=== PATIENT | male | born 1940 | race Caucasian/White ===

== ENCOUNTER 2017-11-19 17:29 | Inpatient (IN) | payer MEDICARE, MEDICAID ==
[~2017-11-19] VITALS: Ht 177.8 cm; Wt 99.3 kg
[2017-11-19 17:39] VITALS: BP 168/61
[2017-11-19] MEDS ORDERED: Albuterol/Ipratropium 3ml neb HHN ONE (18:00)
[2017-11-19 18:43] LABS: BASOPHILS % (AUTO) 1.1 % (0.0-2.0); EOSINOPHILS % (AUTO) 2.1 % (0.0-3.0); HEMATOCRIT 31.2 % (42.0-52.0); HEMOGLOBIN 9.9 G/DL (14.2-18.0); LYMPHOCYTES % (AUTO) 16.3 % (20.0-45.0); MEAN CORPUSCULAR VOLUME 90 FL (80-99); MONOCYTES % (AUTO) 8.5 % (1.0-10.0); NEUTROPHILS % (AUTO) 72.1 % (45.0-75.0); PLATELET COUNT 280 K/UL (150-450); RED BLOOD COUNT 3.46 M/UL (4.70-6.10); RED CELL DISTRIBUTION WIDTH 13.4 % (11.6-14.8); WHITE BLOOD COUNT 8.3 K/UL (4.8-10.8)
[2017-11-19 18:58] LABS: ANION GAP 7 mmol/L (5-15); BLOOD UREA NITROGEN 21 mg/dL (7-18); CALCIUM 8.8 MG/DL (8.5-10.1); CARBON DIOXIDE 28 MMOL/L (21-32); CHLORIDE 106 MMOL/L (98-107); CREATININE 1.3 MG/DL (0.55-1.30); POTASSIUM 4.3 MMOL/L (3.5-5.1); SODIUM 141 MMOL/L (136-145)
[2017-11-19 19:11] LABS: ALANINE AMINOTRANSFERASE 20 U/L (12-78); ALBUMIN/GLOBULIN RATIO 0.7 (1.0-2.7); ALKALINE PHOSPHATASE 105 U/L (46-116); ASPARTATE AMINO TRANSFERASE 21 U/L (15-37); BILIRUBIN,TOTAL 0.3 MG/DL (0.2-1.0); CKMB 3.4 NG/ML (0.0-3.6); CREATINE KINASE 131 U/L (26-308)
[2017-11-19 21:30] VITALS: BP 189/64
[2017-11-19] MEDS ORDERED: Albuterol/Ipratropium 3ml neb HHN PRN (21:30)
[2017-11-19] MEDS ORDERED: Miralax 17gm pkt ORAL PRN (21:30)
[2017-11-19] MEDS ORDERED: UNOBMED (21:32)
[2017-11-19 22:30] VITALS: BP 152/85
--- NOTE | 2017-11-19 22:37 | Emergency Room Report ---
History of Present Illness General Chief Complaint: General Complaint Source: EMS Present Illness HPI Patient is 77-year-old male brought in by EMS after increased difficulty breathing. The patient was noted to have gradually worsening difficulty breathing. Patient had prior history of bypass surgery. He was noted to have some swelling to his lower extremities as well as increased cough.The difficulty breathing is worse with supine position. Allergies: Coded Allergies: No Known Allergies (Unverified , 11/19/17) Patient History Past Medical History: see triage record Reviewed Nursing Documentation: PMH: Agreed; PSxH: Agreed Nursing Documentation-PMH Past Medical History: No History, Except For Hx Cardiac Problems: Yes Hx Cancer: Yes Review of Systems All Other Systems: limited - by poor historian Physical Exam Vital Signs Date Time Temp Pulse Resp B/P (MAP) Pulse Ox O2 Delivery O2 Flow Rate FiO2 11/19/17 17:29 98.3 70 22 187/74 94 Room Air 98.2 11/19/17 19:57 93 General Appearance: alert, moderate distress, Chronically Ill Respiratory: rales, wheezing, expiration Cardiovascular #1: edema - 3+ Gastrointestinal: normal inspection, non tender, no mass Neurologic: normal inspection, alert Medical Decision Making Diagnostic Impression: Primary Impression: Acute exacerbation of CHF (congestive heart failure) Additional Impression: CAD (coronary artery disease) ER Course Patient presented for shortness of breath. Differential included but was not limited to anemia, pneumonia, pneumothorax, myocardial infarction, pericardial effusion, congestive heart failure, acidosis. Because of complexity of patient' s case laboratory testing and imaging studies were ordered. Laboratory testing was notable for elevated BNP. Dr. Price was contacted for inpatient management due to complexity of medical condition. Patient given IV Lasix as well as breathing treatment. Labs Test 11/19/17 18:15 White Blood Count 8.3 K/UL (4.8-10.8) Red Blood Count 3.46 M/UL (4.70-6.10) Hemoglobin 9.9 G/DL (14.2-18.0) Hematocrit 31.2 % (42.0-52.0) Mean Corpuscular Volume 90 FL (80-99) Mean Corpuscular Hemoglobin 28.6 PG (27.0-31.0) Mean Corpuscular Hemoglobin Concent 31.7 G/DL (32.0-36.0) Red Cell Distribution Width 13.4 % (11.6-14.8) Platelet Count 280 K/UL (150-450) Mean Platelet Volume 7.0 FL (6.5-10.1) Neutrophils (%) (Auto) 72.1 % (45.0-75.0) Lymphocytes (%) (Auto) 16.3 % (20.0-45.0) Monocytes (%) (Auto) 8.5 % (1.0-10.0) Eosinophils (%) (Auto) 2.1 % (0.0-3.0) Basophils (%) (Auto) 1.1 % (0.0-2.0) Sodium Level 141 MMOL/L (136-145) Potassium Level 4.3 MMOL/L (3.5-5.1) Chloride Level 106 MMOL/L (98-107) Carbon Dioxide Level 28 MMOL/L (21-32) Anion Gap 7 mmol/L (5-15) Blood Urea Nitrogen 21 mg/dL (7-18) Creatinine 1.3 MG/DL (0.55-1.30) Estimat Glomerular Filtration Rate mL/min (>60) Glucose Level 120 MG/DL (74-106) Lactic Acid Level 0.70 mmol/L (0.66-2.22) Calcium Level 8.8 MG/DL (8.5-10.1) Total Bilirubin 0.3 MG/DL (0.2-1.0) Aspartate Amino Transf (AST/SGOT) 21 U/L (15-37) Alanine Aminotransferase (ALT/SGPT) 20 U/L (12-78) Alkaline Phosphatase 105 U/L (46-116) Total Creatine Kinase 131 U/L (26-308) Creatine Kinase MB 3.4 NG/ML (0.0-3.6) Creatine Kinase MB Relative Index 2.5 Troponin I 0.005 ng/mL (0.000-0.056) Pro-B-Type Natriuretic Peptide 5179 pg/mL (0-125) Total Protein 7.3 G/DL (6.4-8.2) Albumin 3.0 G/DL (3.4-5.0) Globulin 4.3 g/dL Albumin/Globulin Ratio 0.7 (1.0-2.7) EKG Diagnostic Results Rate: normal Rhythm: NSR, other - left bundle branch block ST Segments: no acute changes Rhythm Strip Diag. Results EP Interpretation: yes Rhythm: NSR, other - pvcs Last Vital Signs Date Time Temp Pulse Resp B/P (MAP) Pulse Ox O2 Delivery O2 Flow Rate FiO2 11/19/17 21:30 98.4 75 20 189/64 95 Room Air 98.4 11/19/17 20:07 21 Status: unchanged Disposition: ADMITTED INPATIENT Condition: Serious Referrals: NOT CHOSEN IPA/,REFERRING (PCP) Nhan Walker Nov 19, 2017 22:37
--- NOTE | 2017-11-19 22:52 | History and Physical ---
History of Present Illness General Date patient seen: Nov 19, 2017 Reason for Hospitalization: General Complaint Present Illness HPI 77-year-old with male with hx of COPD, Cardiac disease, Bypass-surgery male brought in by EMS with CC of difficulty breathing witch was gradually worsening. He was noted to have some swelling to his lower extremities as well as increased cough.The difficulty breathing is worse with supine position. He was diagnosed to have acute exacerbation of his underlying CHF and admitted to telemetry. Allergies: Coded Allergies: No Known Allergies (Unverified , 11/19/17) Medication History Miscellaneous Medications Carvedilol* (Carvedilol*), 25 MG ORAL, (Reported) Carvedilol* (Carvedilol*), 12.5 MG ORAL, (Reported) Clonazepam (Clonazepam), 0.5 MG PO, (Reported) Clopidogrel* (Clopidogrel*), 75 MG ORAL, (Reported) Esomeprazole Magnesium (Esomeprazole Magnesium), 40 MG ORAL, (Reported) Furosemide* (Lasix*), 40 MG ORAL, (Reported) Meclizine Hcl (Travel Sickness), 25 MG PO, (Reported) Memantine HCl/Donepezil HCl (Namzaric 28 mg-10 mg Capsule), 10-28 MG ORAL, ( Reported) Nitroglycerin (Nitroglycerin), 0.4 MG PO, (Reported) Ondansetron Hcl (Ondansetron Hcl), 4 MG ORAL, (Reported) Potassium Chloride (Potassium Chloride), 8 MEQ PO, (Reported) Rosuvastatin Calcium (Rosuvastatin Calcium), 40 MG ORAL, (Reported) Tamsulosin Hcl (Tamsulosin Hcl*), 0.4 MG ORAL, (Reported) Topiramate* (Topamax*), 25 MG ORAL, (Reported) Unable to Obtain Medications (Unable To Obtain Meds), (Reported) Valsartan (Diovan), 160 MG ORAL, (Reported) Valsartan (Diovan), 160 MG ORAL, (Reported) Valsartan/Hydrochlorothiazide 160-25MG (Valsartan-Hctz 160-25 Mg Tab), Unknown Dose ORAL, (Reported) Vilazodone Hydrochloride (Viibryd), 20 MG ORAL, (Reported) Patient History Healthcare decision maker Resuscitation status Advanced Directive on File Past Medical/Surgical History Past Medical/Surgical History: (1) Hx of CABG (2) Hypertension (3) CAD (coronary artery disease) Review of Systems Respiratory: Reports: orthopnea, wheezing Gastrointestinal: Reports: abdominal pain, nausea, vomiting Physical Exam General Appearance: WD/WN Lines, tubes and drains: peripheral HEENT: normocephalic, atraumatic Neck: non-tender, normal alignment Respiratory/Chest: chest wall non-tender, lungs clear Cardiovascular/Chest: normal peripheral pulses, normal rate Abdomen: normal bowel sounds Genitourinary/Rectal: normal genital exam, normal rectal exam Extremities: normal range of motion Skin Exam: normal pigmentation Last 24 Hour Vital Signs Date Time Temp Pulse Resp B/P (MAP) Pulse Ox O2 Delivery O2 Flow Rate FiO2 11/19/17 21:30 98.4 75 20 189/64 95 Room Air 98.4 11/19/17 20:07 82 15 100 Room Air 21 11/19/17 19:57 74 17 93 Room Air 21 11/19/17 19:57 36 11/19/17 19:57 78 17 Room Air 93 11/19/17 17:39 99.0 72 20 168/61 96 Room Air 99.0 11/19/17 17:29 98.3 70 22 187/74 94 Room Air 98.2 Laboratory Tests Test 11/19/17 18:15 White Blood Count 8.3 K/UL (4.8-10.8) Red Blood Count 3.46 M/UL (4.70-6.10) L Hemoglobin 9.9 G/DL (14.2-18.0) L Hematocrit 31.2 % (42.0-52.0) L Mean Corpuscular Volume 90 FL (80-99) Mean Corpuscular Hemoglobin 28.6 PG (27.0-31.0) Mean Corpuscular Hemoglobin Concent 31.7 G/DL (32.0-36.0) L Red Cell Distribution Width 13.4 % (11.6-14.8) Platelet Count 280 K/UL (150-450) Mean Platelet Volume 7.0 FL (6.5-10.1) Neutrophils (%) (Auto) 72.1 % (45.0-75.0) Lymphocytes (%) (Auto) 16.3 % (20.0-45.0) L Monocytes (%) (Auto) 8.5 % (1.0-10.0) Eosinophils (%) (Auto) 2.1 % (0.0-3.0) Basophils (%) (Auto) 1.1 % (0.0-2.0) Sodium Level 141 MMOL/L (136-145) Potassium Level 4.3 MMOL/L (3.5-5.1) Chloride Level 106 MMOL/L (98-107) Carbon Dioxide Level 28 MMOL/L (21-32) Anion Gap 7 mmol/L (5-15) Blood Urea Nitrogen 21 mg/dL (7-18) H Creatinine 1.3 MG/DL (0.55-1.30) Estimat Glomerular Filtration Rate mL/min (>60) Glucose Level 120 MG/DL (74-106) H Lactic Acid Level 0.70 mmol/L (0.66-2.22) Calcium Level 8.8 MG/DL (8.5-10.1) Total Bilirubin 0.3 MG/DL (0.2-1.0) Aspartate Amino Transf (AST/SGOT) 21 U/L (15-37) Alanine Aminotransferase (ALT/SGPT) 20 U/L (12-78) Alkaline Phosphatase 105 U/L (46-116) Total Creatine Kinase 131 U/L (26-308) Creatine Kinase MB 3.4 NG/ML (0.0-3.6) Creatine Kinase MB Relative Index 2.5 Troponin I 0.005 ng/mL (0.000-0.056) Pro-B-Type Natriuretic Peptide 5179 pg/mL (0-125) H Total Protein 7.3 G/DL (6.4-8.2) Albumin 3.0 G/DL (3.4-5.0) L Globulin 4.3 g/dL Albumin/Globulin Ratio 0.7 (1.0-2.7) L Microbiology Date/Time Source Procedure Growth Status 11/19/17 18:00 Nasal Nares Influenza Types A,B Antigen (HOLLY) - Final Complete Height (Feet): 5 Height (Inches): 10.00 Weight (Pounds): 180 Medications Current Medications Medications (Trade) Dose Ordered Sig/Gini Route PRN Reason Start Time Stop Time Status Last Admin Dose Admin Acetaminophen (Tylenol) 650 mg Q4H PRN ORAL Fever 11/19/17 21:30 12/19/17 21:29 Albuterol/ Ipratropium (Albuterol/ Ipratropium) 3 ml EVERY 4 HOURS PRN HHN Shortness of Breath 11/19/17 21:30 11/24/17 21:29 Dextrose (Dextrose 50%) STAT PRN IV Hypoglycemia 11/19/17 21:30 12/19/17 21:29 Furosemide (Lasix) 40 mg EVERY 8 HOURS IV 11/19/17 22:00 12/19/17 21:59 Heparin Sodium (Porcine) (Heparin 5000 units/ml) 5,000 units EVERY 12 HOURS SUBQ 11/20/17 09:00 12/20/17 08:59 Ondansetron HCl (Zofran) 4 mg Q6H PRN IVP Nausea & Vomiting 11/19/17 21:30 12/19/17 21:29 Polyethylene Glycol (Miralax) 17 gm DAILYPRN PRN ORAL Constipation 11/19/17 21:30 12/19/17 21:29 Temazepam (Restoril) 15 mg HSPRN PRN ORAL Insomnia 11/19/17 21:30 11/26/17 21:29 Assessment/Plan Problem List: (1) Acute exacerbation of CHF (congestive heart failure) ICD Codes: I50.9 - Heart failure, unspecified SNOMED: 99807346 (2) Intractable nausea and vomiting ICD Codes: R11.2 - Nausea with vomiting, unspecified SNOMED: 838898440 (3) Pulmonary edema ICD Codes: J81.1 - Chronic pulmonary edema SNOMED: 63024595 (4) CAD (coronary artery disease) ICD Codes: I25.10 - Atherosclerotic heart disease of [place] coronary artery without angina pectoris SNOMED: 37116338 (5) Hypertension ICD Codes: I10 - Essential (primary) hypertension SNOMED: 19046707 (6) Hx of CABG ICD Codes: Z95.1 - Presence of aortocoronary bypass graft SNOMED: 032705665, 787459145 Assessment/Plan serial ekg, troponin, echo cardio to see monitor BP Sukhwinder Thomason IV, MD Nov 19, 2017 22:52
[2017-11-20] VITALS: BP 144/64
[2017-11-20 04:00] VITALS: BP 121/76
[2017-11-20 08:00] VITALS: BP 145/72
--- NOTE | 2017-11-20 08:38 | Diagnostic Imaging Report ---
Indication: Shortness of breath Technique: One view of the chest Comparison: 11/05/2009 Findings: The heart is enlarged. There is evidence of prior CABG. The left lateral hemidiaphragm is obscured, may indicate a small amount of pleural fluid. There is some atelectasis of the right lateral lung base. Impression: Possible small left pleural effusion Right basilar atelectasis Cardiomegaly
[2017-11-20 08:58] LABS: BASOPHILS % (AUTO) 0.8 % (0.0-2.0); EOSINOPHILS % (AUTO) 1.9 % (0.0-3.0); HEMATOCRIT 33.4 % (42.0-52.0); HEMOGLOBIN 10.8 G/DL (14.2-18.0); LYMPHOCYTES % (AUTO) 16.1 % (20.0-45.0); MEAN CORPUSCULAR VOLUME 89 FL (80-99); MONOCYTES % (AUTO) 8.5 % (1.0-10.0); NEUTROPHILS % (AUTO) 72.7 % (45.0-75.0); PLATELET COUNT 302 K/UL (150-450); RED BLOOD COUNT 3.73 M/UL (4.70-6.10); RED CELL DISTRIBUTION WIDTH 13.6 % (11.6-14.8); WHITE BLOOD COUNT 9.2 K/UL (4.8-10.8)
[2017-11-20] MEDS: Heparin 5000 units/ml inj SUBQ SCH ×2 (09:00→22:13)
[2017-11-20 09:25] LABS: ALBUMIN 3.3 G/DL (3.4-5.0); ANION GAP 10 mmol/L (5-15); BLOOD UREA NITROGEN 18 mg/dL (7-18); CALCIUM 8.9 MG/DL (8.5-10.1); CARBON DIOXIDE 32 MMOL/L (21-32); CHLORIDE 101 MMOL/L (98-107); CREATININE 1.4 MG/DL (0.55-1.30); PHOSPHORUS 3.7 MG/DL (2.5-4.9); POTASSIUM 3.3 MMOL/L (3.5-5.1); SODIUM 143 MMOL/L (136-145)
--- NOTE | 2017-11-20 10:17 | Diagnostic Imaging Report ---
Indication: Shortness of breath Technique: One view of the chest Comparison: 11/19/2017 Findings: The heart is enlarged. There is less optimal inspiration with crowding of vascular markings. Interstitial markings appear slightly more prominent, but this made in part be artifact of poor inspiration. The heart is enlarged. The left costophrenic angle is now more clear than on the prior exam Impression: Cardiomegaly Equivocal mild interstitial congestion; if real, may be slightly worse than on the prior study Previously is a question left pleural effusion no longer evident, may have resolved or have been artifactual
[2017-11-20 12:00] VITALS: BP 146/58
[2017-11-20] MEDS ORDERED: FUROSEMIDE40 MG ORAL (12:24)
[2017-11-20] MEDS ORDERED: TAMSULOSIN HCL0.4 MG ORAL (12:24)
[2017-11-20] MEDS ORDERED: NITROGLYCERIN0.4 MG PO (12:24)
[2017-11-20] MEDS ORDERED: TRAVEL SICKNESS25 MG PO (12:24)
[2017-11-20] MEDS ORDERED: CLOPIDOGREL75 MG ORAL (12:24)
[2017-11-20] MEDS ORDERED: TOPIRAMATE25 MG ORAL (12:24)
[2017-11-20] MEDS ORDERED: POTASSIUM CHLOR8 ME3 PO (12:24)
[2017-11-20] MEDS ORDERED: CARVEDILOL25 MG ORAL (12:24)
[2017-11-20] MEDS ORDERED: ROSUVASTATIN CA40 MG ORAL (12:24)
[2017-11-20] MEDS ORDERED: CARVEDILOL12.5 MG ORAL (12:24)
[2017-11-20] MEDS ORDERED: NAMZARIC 28 MG1 EACH ORAL (12:24)
[2017-11-20] MEDS ORDERED: VALSARTAN-HCTZ1 EAC2 ORAL (12:24)
[2017-11-20] MEDS ORDERED: VIIBRYD20 MG ORAL (12:24)
[2017-11-20] MEDS ORDERED: CLONAZEPAM0.5 MG PO (12:24)
[2017-11-20] MEDS ORDERED: DIOVAN160 MG ORAL (12:24)
[2017-11-20] MEDS ORDERED: ONDANSETRON HCL4 M1 ORAL (12:24)
[2017-11-20] MEDS ORDERED: ESOMEPRAZOLE MA40 MG ORAL (12:24)
--- NOTE | 2017-11-20 12:44 | Cardiology Progress Note ---
Assessment/Plan Assessment/Plan dyspnea recurrent nausea adn vomittign recent syncoep htn dm prostate czncer s/p xrt aortic stenosiis moderate [id number] Objective Last 24 Hour Vital Signs Date Time Temp Pulse Resp B/P (MAP) Pulse Ox O2 Delivery O2 Flow Rate FiO2 11/20/17 08:00 97.2 69 20 145/72 91 97.2 11/20/17 08:00 74 11/20/17 04:00 98.4 76 20 121/76 96 Room Air 98.4 11/20/17 04:00 77 11/20/17 00:00 97.5 76 20 144/64 95 Room Air 97.5 11/20/17 00:00 79 11/19/17 22:30 97.0 80 20 152/85 95 Room Air 97.0 11/19/17 22:05 98.4 75 20 189/64 95 Room Air 21 98.4 11/19/17 21:30 98.4 75 20 189/64 95 Room Air 98.4 11/19/17 20:07 82 15 100 Room Air 21 11/19/17 19:57 74 17 93 Room Air 21 11/19/17 19:57 36 11/19/17 19:57 78 17 Room Air 93 11/19/17 17:39 99.0 72 20 168/61 96 Room Air 99.0 11/19/17 17:29 98.3 70 22 187/74 94 Room Air 98.2 Intake and Output 11/19/17 11/20/17 19:00 07:00 Intake Total 0 ml Balance 0 ml Intake Oral 0 ml # Voids 6 Laboratory Tests Test 11/19/17 18:15 11/20/17 08:10 White Blood Count 8.3 K/UL (4.8-10.8) 9.2 K/UL (4.8-10.8) Red Blood Count 3.46 M/UL (4.70-6.10) L 3.73 M/UL (4.70-6.10) L Hemoglobin 9.9 G/DL (14.2-18.0) L 10.8 G/DL (14.2-18.0) L Hematocrit 31.2 % (42.0-52.0) L 33.4 % (42.0-52.0) L Mean Corpuscular Volume 90 FL (80-99) 89 FL (80-99) Mean Corpuscular Hemoglobin 28.6 PG (27.0-31.0) 28.8 PG (27.0-31.0) Mean Corpuscular Hemoglobin Concent 31.7 G/DL (32.0-36.0) L 32.2 G/DL (32.0-36.0) Red Cell Distribution Width 13.4 % (11.6-14.8) 13.6 % (11.6-14.8) Platelet Count 280 K/UL (150-450) 302 K/UL (150-450) Mean Platelet Volume 7.0 FL (6.5-10.1) 6.9 FL (6.5-10.1) Neutrophils (%) (Auto) 72.1 % (45.0-75.0) 72.7 % (45.0-75.0) Lymphocytes (%) (Auto) 16.3 % (20.0-45.0) L 16.1 % (20.0-45.0) L Monocytes (%) (Auto) 8.5 % (1.0-10.0) 8.5 % (1.0-10.0) Eosinophils (%) (Auto) 2.1 % (0.0-3.0) 1.9 % (0.0-3.0) Basophils (%) (Auto) 1.1 % (0.0-2.0) 0.8 % (0.0-2.0) Sodium Level 141 MMOL/L (136-145) 143 MMOL/L (136-145) Potassium Level 4.3 MMOL/L (3.5-5.1) 3.3 MMOL/L (3.5-5.1) L Chloride Level 106 MMOL/L (98-107) 101 MMOL/L (98-107) Carbon Dioxide Level 28 MMOL/L (21-32) 32 MMOL/L (21-32) Anion Gap 7 mmol/L (5-15) 10 mmol/L (5-15) Blood Urea Nitrogen 21 mg/dL (7-18) H 18 mg/dL (7-18) Creatinine 1.3 MG/DL (0.55-1.30) 1.4 MG/DL (0.55-1.30) H Estimat Glomerular Filtration Rate mL/min (>60) mL/min (>60) Glucose Level 120 MG/DL (74-106) H 122 MG/DL (74-106) H Lactic Acid Level 0.70 mmol/L (0.66-2.22) Calcium Level 8.8 MG/DL (8.5-10.1) 8.9 MG/DL (8.5-10.1) Total Bilirubin 0.3 MG/DL (0.2-1.0) Aspartate Amino Transf (AST/SGOT) 21 U/L (15-37) Alanine Aminotransferase (ALT/SGPT) 20 U/L (12-78) Alkaline Phosphatase 105 U/L (46-116) Total Creatine Kinase 131 U/L (26-308) Creatine Kinase MB 3.4 NG/ML (0.0-3.6) Creatine Kinase MB Relative Index 2.5 Troponin I 0.005 ng/mL (0.000-0.056) 0.098 ng/mL (0.000-0.056) Pro-B-Type Natriuretic Peptide 5179 pg/mL (0-125) H Total Protein 7.3 G/DL (6.4-8.2) Albumin 3.0 G/DL (3.4-5.0) L 3.3 G/DL (3.4-5.0) L Globulin 4.3 g/dL Albumin/Globulin Ratio 0.7 (1.0-2.7) L Phosphorus Level 3.7 MG/DL (2.5-4.9) Microbiology Date/Time Source Procedure Growth Status 11/19/17 18:00 Nasal Nares Influenza Types A,B Antigen (HOLLY) - Final Complete JOAQUÍN ROY Nov 20, 2017 12:44
--- NOTE | 2017-11-20 13:34 | Pulmonology Progress Note ---
Assessment/Plan Problems: (1) Acute exacerbation of CHF (congestive heart failure) (2) Intractable nausea and vomiting (3) Pulmonary edema (4) CAD (coronary artery disease) (5) Hypertension (6) Hx of CABG Assessment/Plan dc lasix add phenergen iv for nausea npo GI to see symptomatic treatment check electrolytes check echo dvt prophylaxis Subjective ROS Limited/Unobtainable: No Interval Events: still vomiting, less SOB Constitutional: Reports: no symptoms HEENT: Repors: no symptoms Allergies: Coded Allergies: No Known Allergies (Unverified , 11/19/17) Objective Last 24 Hour Vital Signs Date Time Temp Pulse Resp B/P (MAP) Pulse Ox O2 Delivery O2 Flow Rate FiO2 11/20/17 12:00 97.5 74 20 146/58 98 97.5 11/20/17 08:00 97.2 69 20 145/72 91 97.2 11/20/17 08:00 74 11/20/17 04:00 98.4 76 20 121/76 96 Room Air 98.4 11/20/17 04:00 77 11/20/17 00:00 97.5 76 20 144/64 95 Room Air 97.5 11/20/17 00:00 79 11/19/17 22:30 97.0 80 20 152/85 95 Room Air 97.0 11/19/17 22:05 98.4 75 20 189/64 95 Room Air 21 98.4 11/19/17 21:30 98.4 75 20 189/64 95 Room Air 98.4 11/19/17 20:07 82 15 100 Room Air 21 11/19/17 19:57 74 17 93 Room Air 21 11/19/17 19:57 36 11/19/17 19:57 78 17 Room Air 93 11/19/17 17:39 99.0 72 20 168/61 96 Room Air 99.0 11/19/17 17:29 98.3 70 22 187/74 94 Room Air 98.2 Intake and Output 11/19/17 11/20/17 19:00 07:00 Intake Total 0 ml Balance 0 ml Intake Oral 0 ml # Voids 6 Objective General Appearance: WD/WN Lines, tubes and drains: peripheral HEENT: normocephalic, atraumatic Neck: non-tender, normal alignment Respiratory/Chest: chest wall non-tender, lungs clear Cardiovascular/Chest: normal peripheral pulses, normal rate Abdomen: normal bowel sounds Genitourinary/Rectal: normal genital exam, normal rectal exam Extremities: normal range of motion Skin Exam: normal pigmentation Microbiology Date/Time Source Procedure Growth Status 11/19/17 18:00 Nasal Nares Influenza Types A,B Antigen (HOLLY) - Final Complete Laboratory Tests 11/19/17 18:15: White Blood Count 8.3, Red Blood Count 3.46L, Hemoglobin 9.9L, Hematocrit 31.2L , Mean Corpuscular Volume 90, Mean Corpuscular Hemoglobin 28.6, Mean Corpuscular Hemoglobin Concent 31.7L, Red Cell Distribution Width 13.4, Platelet Count 280, Mean Platelet Volume 7.0, Neutrophils (%) (Auto) 72.1, Lymphocytes (%) (Auto) 16.3L, Monocytes (%) (Auto) 8.5, Eosinophils (%) (Auto) 2.1, Basophils (%) (Auto) 1.1, Sodium Level 141, Potassium Level 4.3, Chloride Level 106, Carbon Dioxide Level 28, Anion Gap 7, Blood Urea Nitrogen 21H, Creatinine 1.3, Estimat Glomerular Filtration Rate , Glucose Level 120H, Lactic Acid Level 0.70, Calcium Level 8.8, Total Bilirubin 0.3, Aspartate Amino Transf (AST/SGOT) 21, Alanine Aminotransferase (ALT/SGPT) 20, Alkaline Phosphatase 105 , Total Creatine Kinase 131, Creatine Kinase MB 3.4, Creatine Kinase MB Relative Index 2.5, Troponin I 0.005, Pro-B-Type Natriuretic Peptide 5179H, Total Protein 7.3, Albumin 3.0L, Globulin 4.3, Albumin/Globulin Ratio 0.7L 11/20/17 08:10: White Blood Count 9.2, Red Blood Count 3.73L, Hemoglobin 10.8L, Hematocrit 33.4L , Mean Corpuscular Volume 89, Mean Corpuscular Hemoglobin 28.8, Mean Corpuscular Hemoglobin Concent 32.2, Red Cell Distribution Width 13.6, Platelet Count 302, Mean Platelet Volume 6.9, Neutrophils (%) (Auto) 72.7, Lymphocytes (% ) (Auto) 16.1L, Monocytes (%) (Auto) 8.5, Eosinophils (%) (Auto) 1.9, Basophils (%) (Auto) 0.8, Sodium Level 143, Potassium Level 3.3L, Chloride Level 101, Carbon Dioxide Level 32, Anion Gap 10, Blood Urea Nitrogen 18, Creatinine 1.4H, Estimat Glomerular Filtration Rate , Glucose Level 122H, Calcium Level 8.9, Troponin I 0.098H, Albumin 3.3L, Phosphorus Level 3.7 Current Medications Medications (Trade) Dose Ordered Sig/Gini Route PRN Reason Start Time Stop Time Status Last Admin Dose Admin Acetaminophen (Tylenol) 650 mg Q4H PRN ORAL Fever 11/19/17 21:30 12/19/17 21:29 Albuterol/ Ipratropium (Albuterol/ Ipratropium) 3 ml EVERY 4 HOURS PRN HHN Shortness of Breath 11/19/17 21:30 11/24/17 21:29 Dextrose (Dextrose 50%) STAT PRN IV Hypoglycemia 11/19/17 21:30 12/19/17 21:29 Furosemide (Lasix) 40 mg EVERY 8 HOURS IV 11/19/17 22:00 12/19/17 21:59 11/20/17 05:42 Heparin Sodium (Porcine) (Heparin 5000 units/ml) 5,000 units EVERY 12 HOURS SUBQ 11/20/17 09:00 12/20/17 08:59 Ondansetron HCl (Zofran) 4 mg Q6H PRN IVP Nausea & Vomiting 11/19/17 21:30 12/19/17 21:29 11/20/17 08:00 Polyethylene Glycol (Miralax) 17 gm DAILYPRN PRN ORAL Constipation 11/19/17 21:30 12/19/17 21:29 Temazepam (Restoril) 15 mg HSPRN PRN ORAL Insomnia 11/19/17 21:30 11/26/17 21:29 Sukhwinder Price MD Nov 20, 2017 13:34
[2017-11-20 16:00] VITALS: BP 108/72
--- NOTE | 2017-11-20 17:32 | Cardiology Report ---
APPROVED REPORT EXAM: Two-dimensional and M-mode echocardiogram with Doppler and color Doppler. INDICATION LV function M-Mode DIMENSIONS IVSd1.7 (0.7-1.1cm)Left Atrium (MM)5.5 (1.6-4.0cm) LVDd6.4 (3.5-5.6cm)Aortic Root3.6 (2.0-3.7cm) PWd1.7 (0.7-1.1cm)Aortic Cusp Exc.1.3 (1.5-2.0cm) LVDs5.2 (2.5-4.0cm) PWs2.1 cm Technically difficult study due to poor acoustical windows and pt's constant movement. Left ventricular enlargement. Hypokinesis of the proximal anterior septum and mid to distal inferior wall and proximal to mid posterior friedman Left ventricular ejection fraction estimated to be 50 %. Study quality precludes accurate assessment of regional wall motion. Moderate left ventricular hypertrophy. No evidence of pericardial effusion. Moderate bi-atrial enlargement. Mild right ventricular enlargement. Aortic valve calcification with decreased cusp excursion c/w aortic stenosis. Moderately thickened mitral valve leaflets with normal excursion. Mitral annulus and aortic root calcification. Pulmonic valve not well visualized. Normal tricuspid valve structure. IVC dilated at 2.5 cm with physiologic collapse suggestive of increased RA pressure. A color flow and spectral Doppler study was performed and revealed: Trace aortic regurgitation. Peak aortic valve gradient of 51 mm Hg and a mean of 30 mmHg. Aortic valve area 1.0 cm2 calculated by continuity equation suggestive of moderate to severe aortic stenosis . Mild to moderate mitral regurgitation. Peak mitral valve diastolic gradient of 5 mmHg and a mean gradient of 1.5 mmHg Mitral diastolic velocities suggest reduced left ventricular relaxation c/w mild LV diastolic dysfunction (Grade I ). Trace tricuspid regurgitation. Tricuspid systolic velocities suggests peak right ventricular systolic pressure of 35-40 mmHg.
--- NOTE | 2017-11-20 17:42 | Cardiology Report ---
APPROVED REPORT EKG Measurement Heart [id number] Normal sinus rhythm Left bundle branch block Abnormal ECG
--- NOTE | 2017-11-20 19:30 | Consultation ---
DATE OF CONSULTATION: 11/20/2017 CARDIOLOGY CONSULTATION CONSULTING PHYSICIAN: Sj Mejia M.D. REFERRING PHYSICIAN: Sukhwinder Price M.D. REASON FOR REFERRAL: Reported syncope. HISTORY OF PRESENT ILLNESS: This is an elderly gentleman. I am not sure how accurate his information is. He is somewhat disoriented, but information from him is obtained through one of the staff here that speaks [place] Citizen and from review of the patient's chart at [facility]. Emergency room physician indicates the patient was brought in by EMS having increased difficulty. The patient noted to have gradually worsening difficulty breathing and apparently has some swelling in his extremities; however, he told me that he was walking and he passed out, although again I am not sure about that information. In either case, the patient denies having any pain at this time, although he has had some previously. He does have some shortness of breath on exertion. There is no PND. He uses two pillows for comfort. He does get dizzy or lightheaded every time he stands up and he occasionally has palpitations. PAST MEDICAL HISTORY: Through the [facility] system is extensive and includes a recent hospitalization and discharge on 09/25/2017 for a ground-level fall; hypotension secondary to hypovolemia; orthostatic hypotension; syncope secondary to above; high blood pressure; chronic kidney disease stage 4, stable; coronary artery disease; history of coronary bypass grafting in 2002; gastroesophageal reflux disease; permanent pacemaker implantation; diabetes mellitus; hypertension; and chronic diastolic heart failure. He takes low-dose Coreg for his hypertension. He also has dementia. His subject scientific research's is Dr. Melara and I have had a chance to review one of his progress note at [facility] that was performed recently. He had an echocardiogram, which showed ejection fraction of 56% with mild diastolic relaxation abnormality, akinesis of basal to mid inferior wall, hypokinesis of the basal septal wall, moderate aortic stenosis with a peak gradient of only 35 with a mean gradient of 20, aortic valve area of 1.0, and pulmonary artery systolic pressure of 15. He does have a history of hyperlipidemia as well. He has left bundle-branch conduction defect as well. He has had a history of prostate cancer treated with radiation therapy, deep venous thromboses, benign prostatic hypertrophy, as well as a history of IVC filter previously placed, lumbar kyphoplasty. He has history of Endoclip placement, I believe, for bleeding, although that is not completely clear. ALLERGIES: He denies any allergies to medications. 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 He has a history of smoking, which according to himself at this time he quit three years ago. REVIEW OF SYSTEMS: GASTROINTESTINAL: He has had nausea and vomiting, he thinks, for the past two days, although the nurse indicated nausea and vomiting started this morning after he ate breakfast. He tells me he has had a bowel movement two days ago. No black or bloody stools. GENITOURINARY: He denies any burning or blood in his urine. PULMONARY: Denies any coughing or wheezing. CONSTITUTIONAL: He denies any fevers, chills, or night sweats. PHYSICAL EXAMINATION: GENERAL: Shows him to be an elderly, obese gentleman in no respiratory distress, intermittently vomiting very minimal amounts, especially at the end of my interview. NECK: Supple. No jugular venous distention. Carotid upstroke does not appear to be significantly delayed. LUNGS: Appear to be clear to auscultation and percussion. CARDIAC: S1 is normal. S2 is normal. Regular rate and rhythm. No heaves or thrills noted. There is a systolic ejection murmur noted at the aortic band. ABDOMEN: Somewhat obese. Nontender. No guarding. No rigidity. No rebound tenderness. EXTREMITIES: There is no clubbing, cyanosis, or edema. NEUROLOGICAL: He is awake and alert. He knows that he is in the hospital. He does not know the month or the year, although he indicated 2016. LABORATORY AND DIAGNOSTIC DATA: His white count is 9.2, hemoglobin 10.8, and platelet count of 302. His sodium is 142, potassium 3.3, chloride 101, bicarb 32, BUN of 18, creatinine 1.4, and glucose of 122. Troponin was 0.05, subsequently 0.098. Albumin of 3.3. Chest x-ray performed today shows cardiomegaly, equivocal mild interstitial congestion. His electrocardiogram shows sinus rhythm with left bundle-branch conduction defect. ASSESSMENT AND PLAN: 1. Questionable shortness of breath at the time of admission. 2. Aortic stenosis, moderate degree. 3. Coronary artery disease, status post coronary bypass grafting. 4. Stage 4 chronic renal insufficiency. 5. History of prostate cancer, status post radiation therapy. 6. Diabetes mellitus. 7. History of hypertension. 8. Mild diastolic dysfunction. This patient was seen in cardiac consultation. The patient's records from [facility] were reviewed. Not clear if the patient has any shortness of breath. He, in fact, appears somewhat of a poor historian. He has persistent nausea and vomiting since this morning and should probably have a GI evaluation. He denies any significant chest pain. He has had a recent syncope. He does have some orthostatic symptoms, but his blood pressure is anywhere between 121/76 to 189/64, mainly in the 140s to 150s range. A set of orthostatic vitals will be ordered, and the patient's medications will be continued. He had been on the Namenda, Crestor, Janumet, Flomax, and Protonix. He was recently taken off of Drexel, Exelon, and Diovan HCT and he was started on Coreg 6.25 mg twice a day by Dr. Melara at [facility] recently. If he does not have any orthostatic vitals, we will observe to see if he needs to be on any diuretics given his reported history of shortness of breath. He did receive some doses of diuretics yesterday and today. I will follow his response and orthostatic vitals because of his complaint of shortness of breath for treatment for diastolic dysfunction. Sj Mejia M.D. DR: Claudio JOB#: [id number] CC:
[2017-11-20 20:00] VITALS: BP 111/55
--- NOTE | 2017-11-20 22:49 | Consultation ---
History of Present Illness General Date patient seen: Nov 19, 2017 Chief Complaint: General Complaint Present Illness HPI 77-year-old male brought in by EMS after increased difficulty breathing. the pt is confused and agitated Allergies: Coded Allergies: No Known Allergies (Unverified , 11/19/17) Medication History Miscellaneous Medications Carvedilol* (Carvedilol*), 25 MG ORAL, (Reported) Carvedilol* (Carvedilol*), 12.5 MG ORAL, (Reported) Clonazepam (Clonazepam), 0.5 MG PO, (Reported) Clopidogrel* (Clopidogrel*), 75 MG ORAL, (Reported) Esomeprazole Magnesium (Esomeprazole Magnesium), 40 MG ORAL, (Reported) Furosemide* (Lasix*), 40 MG ORAL, (Reported) Meclizine Hcl (Travel Sickness), 25 MG PO, (Reported) Memantine HCl/Donepezil HCl (Namzaric 28 mg-10 mg Capsule), 10-28 MG ORAL, ( Reported) Nitroglycerin (Nitroglycerin), 0.4 MG PO, (Reported) Ondansetron Hcl (Ondansetron Hcl), 4 MG ORAL, (Reported) Potassium Chloride (Potassium Chloride), 8 MEQ PO, (Reported) Rosuvastatin Calcium (Rosuvastatin Calcium), 40 MG ORAL, (Reported) Tamsulosin Hcl (Tamsulosin Hcl*), 0.4 MG ORAL, (Reported) Topiramate* (Topamax*), 25 MG ORAL, (Reported) Unable to Obtain Medications (Unable To Obtain Meds), (Reported) Valsartan (Diovan), 160 MG ORAL, (Reported) Valsartan (Diovan), 160 MG ORAL, (Reported) Valsartan/Hydrochlorothiazide 160-25MG (Valsartan-Hctz 160-25 Mg Tab), Unknown Dose ORAL, (Reported) Vilazodone Hydrochloride (Viibryd), 20 MG ORAL, (Reported) Patient History Limited by: medical condition History Provided By: Patient, Medical Record, PMD Healthcare decision maker Resuscitation status Full Code Advanced Directive on File Review of Systems Psychiatric: Reports: prior hx, anxiety, depressed feelings Physical Exam General Appearance: no apparent distress, alert, confused, agitated Last 24 Hour Vital Signs Date Time Temp Pulse Resp B/P (MAP) Pulse Ox O2 Delivery O2 Flow Rate FiO2 11/20/17 20:00 98.5 85 20 111/55 91 98.5 11/20/17 16:00 97.3 93 20 108/72 91 97.3 11/20/17 16:00 85 11/20/17 12:00 76 11/20/17 12:00 97.5 74 20 146/58 98 97.5 11/20/17 08:00 97.2 69 20 145/72 91 97.2 11/20/17 08:00 74 11/20/17 04:00 98.4 76 20 121/76 96 Room Air 98.4 11/20/17 04:00 77 11/20/17 00:00 97.5 76 20 144/64 95 Room Air 97.5 11/20/17 00:00 79 Intake and Output 11/19/17 11/20/17 19:00 07:00 Intake Total 0 ml Balance 0 ml Intake Oral 0 ml # Voids 6 Laboratory Tests Test 11/20/17 08:10 White Blood Count 9.2 K/UL (4.8-10.8) Red Blood Count 3.73 M/UL (4.70-6.10) L Hemoglobin 10.8 G/DL (14.2-18.0) L Hematocrit 33.4 % (42.0-52.0) L Mean Corpuscular Volume 89 FL (80-99) Mean Corpuscular Hemoglobin 28.8 PG (27.0-31.0) Mean Corpuscular Hemoglobin Concent 32.2 G/DL (32.0-36.0) Red Cell Distribution Width 13.6 % (11.6-14.8) Platelet Count 302 K/UL (150-450) Mean Platelet Volume 6.9 FL (6.5-10.1) Neutrophils (%) (Auto) 72.7 % (45.0-75.0) Lymphocytes (%) (Auto) 16.1 % (20.0-45.0) L Monocytes (%) (Auto) 8.5 % (1.0-10.0) Eosinophils (%) (Auto) 1.9 % (0.0-3.0) Basophils (%) (Auto) 0.8 % (0.0-2.0) Sodium Level 143 MMOL/L (136-145) Potassium Level 3.3 MMOL/L (3.5-5.1) L Chloride Level 101 MMOL/L (98-107) Carbon Dioxide Level 32 MMOL/L (21-32) Anion Gap 10 mmol/L (5-15) Blood Urea Nitrogen 18 mg/dL (7-18) Creatinine 1.4 MG/DL (0.55-1.30) H Estimat Glomerular Filtration Rate mL/min (>60) Glucose Level 122 MG/DL (74-106) H Calcium Level 8.9 MG/DL (8.5-10.1) Phosphorus Level 3.7 MG/DL (2.5-4.9) Troponin I 0.098 ng/mL (0.000-0.056) Albumin 3.3 G/DL (3.4-5.0) L Height (Feet): 5 Height (Inches): 10.00 Weight (Pounds): 211 Medications Current Medications Medications (Trade) Dose Ordered Sig/Gini Route PRN Reason Start Time Stop Time Status Last Admin Dose Admin Acetaminophen (Tylenol) 650 mg Q4H PRN ORAL Fever 11/19/17 21:30 12/19/17 21:29 Albuterol/ Ipratropium (Albuterol/ Ipratropium) 3 ml EVERY 4 HOURS PRN HHN Shortness of Breath 11/19/17 21:30 11/24/17 21:29 Dextrose (Dextrose 50%) STAT PRN IV Hypoglycemia 11/19/17 21:30 12/19/17 21:29 Heparin Sodium (Porcine) (Heparin 5000 units/ml) 5,000 units EVERY 12 HOURS SUBQ 11/20/17 09:00 12/20/17 08:59 11/20/17 22:13 Ondansetron HCl (Zofran) 4 mg Q6H PRN IVP Nausea & Vomiting 11/19/17 21:30 12/19/17 21:29 11/20/17 08:00 Polyethylene Glycol (Miralax) 17 gm DAILYPRN PRN ORAL Constipation 11/19/17 21:30 12/19/17 21:29 Promethazine HCl (Phenergan) 25 mg Q6H PRN IV Nausea & Vomiting 11/20/17 13:30 12/20/17 13:29 11/20/17 15:06 Quetiapine Fumarate (SEROquel) 25 mg Q6H PRN ORAL Agitation 11/20/17 17:15 12/20/17 17:14 Temazepam (Restoril) 15 mg HSPRN PRN ORAL Insomnia 11/19/17 21:30 11/26/17 21:29 Assessment/Plan Assessment/Plan encephalopathy dementia with behavioral therapy cont current meds Kellie Hsieh M.D. Nov 20, 2017 22:49
[2017-11-21] VITALS: BP 140/60
[2017-11-21 04:00] VITALS: BP 155/62
[2017-11-21 07:59] LABS: BASOPHILS % (AUTO) 1.3 % (0.0-2.0); EOSINOPHILS % (AUTO) 2.9 % (0.0-3.0); HEMATOCRIT 31.8 % (42.0-52.0); LYMPHOCYTES % (AUTO) 19.9 % (20.0-45.0); MEAN CORPUSCULAR VOLUME 91 FL (80-99); MONOCYTES % (AUTO) 9.3 % (1.0-10.0); NEUTROPHILS % (AUTO) 66.6 % (45.0-75.0); PLATELET COUNT 236 K/UL (150-450); RED CELL DISTRIBUTION WIDTH 13.7 % (11.6-14.8); WHITE BLOOD COUNT 10.2 K/UL (4.8-10.8)
[2017-11-21 08:00] VITALS: BP 148/60
[2017-11-21 08:07] LABS: INR 0.9 (0.9-1.1)
[2017-11-21 08:53] LABS: ALANINE AMINOTRANSFERASE 23 U/L (12-78); ALBUMIN/GLOBULIN RATIO 0.9 (1.0-2.7); ALKALINE PHOSPHATASE 105 U/L (46-116); ANION GAP 5 mmol/L (5-15); ASPARTATE AMINO TRANSFERASE 23 U/L (15-37); BILIRUBIN,TOTAL 0.5 MG/DL (0.2-1.0); BLOOD UREA NITROGEN 26 mg/dL (7-18); CALCIUM 8.9 MG/DL (8.5-10.1); CARBON DIOXIDE 35 MMOL/L (21-32); CHLORIDE 103 MMOL/L (98-107); CREATININE 1.5 MG/DL (0.55-1.30); LACTATE DEHYDROGENASE 189 U/L (81-234); POTASSIUM 3.6 MMOL/L (3.5-5.1); SODIUM 143 MMOL/L (136-145)
[2017-11-21 08:57] LABS: PHOSPHORUS 4.4 MG/DL (2.5-4.9)
[2017-11-21] MEDS: Heparin 5000 units/ml inj SUBQ SCH ×2 (09:00→20:48)
[2017-11-21 09:13] LABS: % IRON SATURATION 12 % (15-50); IRON 32 ug/dL (50-175); TOTAL IRON BINDING CAPACITY 264 ug/dL (250-450)
[2017-11-21 12:00] VITALS: BP 111/55
--- NOTE | 2017-11-21 13:00 | Consultation ---
DATE OF CONSULTATION: 11/21/2017 GASTROENTEROLOGY CONSULTATION CONSULTING PHYSICIAN: Dominic Powers M.D. CHIEF COMPLAINT: Anemia, nausea, vomiting. HISTORY OF PRESENT ILLNESS: Most of history per chart. The patient is a very poor historian. He has multiple medical problems, which I will dictate in , was admitted to the hospital with complaint of having mainly shortness of breath. Apparently, he was recently admitted to [facility]. He also has some evidence of vomiting and also has anemia. So, GI consult requested for evaluation. PAST MEDICAL HISTORY: Significant for: 1. Aortic stenosis. 2. Coronary artery disease, status post coronary bypass grafting. 3. Chronic kidney disease. 4. History of prostate cancer, status post radiation therapy. 5. Diabetes. 6. Hypertension. 7. History of diastolic dysfunction. PAST SURGICAL HISTORY: CABG as dictated above. ALLERGIES: Denies any allergy. MEDICATIONS: Please see medication reconciliation list. SOCIAL HISTORY: The patient apparently mainly from [place]. He has history of tobacco usage, alcohol usage, but nothing recently. REVIEW OF SYSTEMS: Limited, the patient is a poor historian. PHYSICAL EXAMINATION: VITAL SIGNS: Temperature is 99.6, pulse is 74, respirations 20, and blood pressure is 155/62. HEENT: Normocephalic and atraumatic. Sclerae anicteric. NECK: Supple. No lymphadenopathy. CARDIOVASCULAR: Regular rate and rhythm. Plus S1 and S2. Soft murmur in the left sternal border. LUNGS: Decreased breath sounds at bilateral bases on supine exam. ABDOMEN: Soft and nontender. No rebound. No guarding. No peritoneal sign. EXTREMITIES: No cyanosis, no clubbing, no edema. LABORATORY AND DIAGNOSTIC DATA: White count is 10.2, hemoglobin is 10, hematocrit is 31, and platelet count is 236. Chem 7, sodium 143, potassium 3.6, BUN is 26, creatinine is 1.5. Iron saturation was 12%. Stool for OB still pending. Imaging studies, chest x-ray showed cardiomegaly, equivocal mild intestinal congestion. ASSESSMENT AND PLAN: This is a 77 years old male with multiple medical problems, mainly cardiac in origin. From GI standpoint has anemia of iron deficiency. No prior history of recent endoscopy and colonoscopy. Also had one episode of vomiting yesterday. Plan to do anemia workup. Start the patient on IV iron given evidence of iron deficiency. Send stool for OB. We will communicate with martial arts instructor to see the patient clear for GI procedures. The patient had mildly elevated troponin on admission and also has history of CABG, so we will have to communicate with martial arts instructor. Left a message for Dr. Mejia. In terms of nausea and vomiting, at this time, the etiology is unknown. No acute abdominal findings. We are going to order amylase and lipase for tomorrow, rule out pancreatitis. We will order abdominal ultrasound for evaluation of gallstones and we will monitor him on daily basis. I want to thank, Dr. Price, for this kind referral. Dominic Powers M.D. DR: OLIVER JOB#: [id number] CC: Sukhwinder Price M.D.; Fax#: [phone]
--- NOTE | 2017-11-21 15:21 | Pulmonology Progress Note ---
Assessment/Plan Problems: (1) Acute exacerbation of CHF (congestive heart failure) (2) Intractable nausea and vomiting (3) Pulmonary edema (4) CAD (coronary artery disease) (5) Hypertension (6) Hx of CABG Assessment/Plan off lasix add phenergen iv for nausea npo GI consult appreciated symptomatic treatment check electrolytes check echo dvt prophylaxis scheduled for EGD in am Cardio oked transfer to med/surg. Subjective ROS Limited/Unobtainable: No Interval Events: no nausea any shonda Allergies: Coded Allergies: No Known Allergies (Unverified , 11/19/17) Objective Last 24 Hour Vital Signs Date Time Temp Pulse Resp B/P (MAP) Pulse Ox O2 Delivery O2 Flow Rate FiO2 11/21/17 08:00 74 11/21/17 08:00 99.6 74 18 148/60 91 Room Air 94 99.6 11/21/17 07:25 80 18 Room Air 94 11/21/17 04:00 81 11/21/17 04:00 99.6 74 20 155/62 91 99.6 11/21/17 00:00 75 11/21/17 00:00 99.4 79 18 140/60 91 99.4 11/20/17 20:00 98.5 85 20 111/55 91 98.5 11/20/17 20:00 83 11/20/17 16:00 97.3 93 20 108/72 91 97.3 11/20/17 16:00 85 Intake and Output 11/20/17 11/21/17 19:00 07:00 Intake Total 120 ml 120 ml Balance 120 ml 120 ml Intake Oral 120 ml 120 ml # Voids 3 2 Objective General Appearance: WD/WN Lines, tubes and drains: peripheral HEENT: normocephalic, atraumatic Neck: non-tender, normal alignment Respiratory/Chest: chest wall non-tender, lungs clear Cardiovascular/Chest: normal peripheral pulses, normal rate Abdomen: normal bowel sounds Genitourinary/Rectal: normal genital exam, normal rectal exam Extremities: normal range of motion Skin Exam: normal pigmentation Microbiology Date/Time Source Procedure Growth Status 11/19/17 18:20 Blood Blood Culture - Preliminary NO GROWTH AFTER 24 HOURS Resulted 11/19/17 18:15 Blood Blood Culture - Preliminary NO GROWTH AFTER 24 HOURS Resulted 11/19/17 18:00 Nasal Nares Influenza Types A,B Antigen (HOLLY) - Final Complete Laboratory Tests 11/21/17 07:10: White Blood Count 10.2, Red Blood Count 3.50L, Hemoglobin 10.0L, Hematocrit 31.8L, Mean Corpuscular Volume 91, Mean Corpuscular Hemoglobin 28.5, Mean Corpuscular Hemoglobin Concent 31.3L, Red Cell Distribution Width 13.7, Platelet Count 236, Mean Platelet Volume 6.7, Neutrophils (%) (Auto) 66.6, Lymphocytes (%) (Auto) 19.9L, Monocytes (%) (Auto) 9.3, Eosinophils (%) (Auto) 2.9, Basophils (%) (Auto) 1.3, Differential Total Cells Counted 100, Neutrophils % (Manual) 64, Lymphocytes % (Manual) 23, Monocytes % (Manual) 10, Eosinophils % (Manual) 2, Basophils % (Manual) 1, Band Neutrophils 0, Platelet Estimate Adequate, Platelet Morphology Normal, Hypochromasia 1+, Erythrocyte Sedimentation Rate 13, Reticulocyte Count 1.8, Prothrombin Time 9.9, Prothromb Time International Ratio 0.9, Activated Partial Thromboplast Time 22L, Sodium Level 143, Potassium Level 3.6, Chloride Level 103, Carbon Dioxide Level 35H, Anion Gap 5, Blood Urea Nitrogen 26H, Creatinine 1.5H, Estimat Glomerular Filtration Rate , Glucose Level 120H, Calcium Level 8.9, Phosphorus Level 4.4, Magnesium Level 1.9, Iron Level 32L, Total Iron Binding Capacity 264, Percent Iron Saturation 12L, Unsaturated Iron Binding 232, Total Bilirubin 0.5, Aspartate Amino Transf (AST/SGOT) 23, Alanine Aminotransferase (ALT/SGPT) 23, Alkaline Phosphatase 105, Lactate Dehydrogenase 189, Troponin I 0.050, Total Protein 6.5, Albumin 3.0L, Globulin 3.5, Albumin/Globulin Ratio 0.9L, Vitamin B12 Level 339, Folate 13.4 11/21/17 09:00: Stool Occult Blood Positive Current Medications Medications (Trade) Dose Ordered Sig/Gini Route PRN Reason Start Time Stop Time Status Last Admin Dose Admin Acetaminophen (Tylenol) 650 mg Q4H PRN ORAL Fever 11/19/17 21:30 12/19/17 21:29 Albuterol/ Ipratropium (Albuterol/ Ipratropium) 3 ml EVERY 4 HOURS PRN HHN Shortness of Breath 11/19/17 21:30 11/24/17 21:29 Bisacodyl (Dulcolax) 10 mg ONCE ONCE ORAL 11/21/17 16:00 11/21/17 16:01 Dextrose (Dextrose 50%) 25 ml STAT PRN IV HYPOGLYCEMIA 11/21/17 08:30 12/21/17 08:29 Dextrose (Dextrose 50%) 50 ml STAT PRN IV Hypoglycemia 11/21/17 09:00 12/21/17 08:59 Heparin Sodium (Porcine) (Heparin 5000 units/ml) 5,000 units EVERY 12 HOURS SUBQ 11/20/17 09:00 12/20/17 08:59 11/20/17 22:13 Iron Sucrose 100 mg/Sodium Chloride 115 ml @ 460 mls/hr BEDTIME IV 11/21/17 21:00 11/25/17 21:14 Ondansetron HCl (Zofran) 4 mg Q6H PRN IVP Nausea & Vomiting 11/19/17 21:30 12/19/17 21:29 11/20/17 08:00 Polyethylene Glycol (Miralax) 17 gm DAILYPRN PRN ORAL Constipation 11/19/17 21:30 12/19/17 21:29 Polyethylene Glycol (Miralax) 238 gm ONCE ONCE ORAL 11/21/17 16:00 11/21/17 16:01 Promethazine HCl (Phenergan) 25 mg Q6H PRN IV Nausea & Vomiting 11/20/17 13:30 12/20/17 13:29 11/20/17 15:06 Quetiapine Fumarate (SEROquel) 25 mg Q6H PRN ORAL Agitation 11/20/17 17:15 12/20/17 17:14 Sodium Phosphate (Fleet's Sodium Phosl Enema) 133 ml ONCE ONCE RECTAL 11/21/17 23:00 11/21/17 23:01 Temazepam (Restoril) 15 mg HSPRN PRN ORAL Insomnia 11/19/17 21:30 11/26/17 21:29 11/20/17 23:49 Sukhwinder Price MD Nov 21, 2017 15:21
[2017-11-21] MEDS ORDERED: Bisacodyl EC 5mg tab ORAL ONE (16:00)
[2017-11-21] MEDS ORDERED: Polyethylene Glycol 238gm bottle ORAL ONE (16:00)
[2017-11-21 16:41] LABS: CREATINE KINASE 419 U/L (26-308)
[2017-11-21 17:10] VITALS: BP 118/32
[2017-11-21 20:28] VITALS: BP 100/63
[2017-11-21] MEDS: Iron Sucrose 100 MG in NS 110 ML IV SCH (20:47)
[2017-11-21] MEDS ORDERED: Iron Sucrose 100 MG in NS 110 ML IV SCH (21:00)
[2017-11-21] MEDS ORDERED: Albuterol/Ipratropium 3ml neb HHN PRN (21:00)
[2017-11-21] MEDS ORDERED: Miralax 17gm pkt ORAL PRN (21:30)
[2017-11-21 21:32] LABS: APPEARANCE,URINE CLEAR; BILIRUBIN, URINE NEGATIVE (NEGATIVE); GLUCOSE, URINE (UA) NEGATIVE (NEGATIVE); KETONES,URINE 1+ (NEGATIVE); LEUKOCYTE ESTERASE ,URINE NEGATIVE (NEGATIVE); NITRITE,URINE POSITIVE (NEGATIVE); PH,URINE 7 (4.5-8.0); PROTEIN,URINE 2+ (NEGATIVE); UROBILINOGEN,URINE 1 MG/DL (0.0-1.0)
--- NOTE | 2017-11-21 21:32 | General Progress Note ---
Assessment/Plan Status: stable Assessment/Plan encephalopathy dementia with behavioral therapy cont current meds Subjective Date patient seen: Nov 21, 2017 Neurologic/Psychiatric: Reports: anxiety, depressed, emotional problems Allergies: Coded Allergies: No Known Allergies (Unverified , 11/19/17) Subjective the pt is calm manageable Objective Last 24 Hour Vital Signs Date Time Temp Pulse Resp B/P (MAP) Pulse Ox O2 Delivery O2 Flow Rate FiO2 11/21/17 20:28 98.4 74 18 100/63 94 98.4 11/21/17 17:10 98.4 82 18 118/32 91 Room Air 94 98.4 11/21/17 12:00 98.5 85 18 111/55 91 Room Air 94 98.5 11/21/17 12:00 68 11/21/17 08:00 74 11/21/17 08:00 99.6 74 18 148/60 91 Room Air 94 99.6 11/21/17 07:25 80 18 Room Air 94 11/21/17 04:00 81 11/21/17 04:00 99.6 74 20 155/62 91 99.6 11/21/17 00:00 75 11/21/17 00:00 99.4 79 18 140/60 91 99.4 Intake and Output 11/20/17 11/21/17 19:00 07:00 Intake Total 120 ml 120 ml Balance 120 ml 120 ml Intake Oral 120 ml 120 ml # Voids 3 2 Laboratory Tests 11/21/17 07:10: White Blood Count 10.2, Red Blood Count 3.50L, Hemoglobin 10.0L, Hematocrit 31.8L, Mean Corpuscular Volume 91, Mean Corpuscular Hemoglobin 28.5, Mean Corpuscular Hemoglobin Concent 31.3L, Red Cell Distribution Width 13.7, Platelet Count 236, Mean Platelet Volume 6.7, Neutrophils (%) (Auto) 66.6, Lymphocytes (%) (Auto) 19.9L, Monocytes (%) (Auto) 9.3, Eosinophils (%) (Auto) 2.9, Basophils (%) (Auto) 1.3, Differential Total Cells Counted 100, Neutrophils % (Manual) 64, Lymphocytes % (Manual) 23, Monocytes % (Manual) 10, Eosinophils % (Manual) 2, Basophils % (Manual) 1, Band Neutrophils 0, Platelet Estimate Adequate, Platelet Morphology Normal, Hypochromasia 1+, Erythrocyte Sedimentation Rate 13, Reticulocyte Count 1.8, Prothrombin Time 9.9, Prothromb Time International Ratio 0.9, Activated Partial Thromboplast Time 22L, Sodium Level 143, Potassium Level 3.6, Chloride Level 103, Carbon Dioxide Level 35H, Anion Gap 5, Blood Urea Nitrogen 26H, Creatinine 1.5H, Estimat Glomerular Filtration Rate , Glucose Level 120H, Calcium Level 8.9, Phosphorus Level 4.4, Magnesium Level 1.9, Iron Level 32L, Total Iron Binding Capacity 264, Percent Iron Saturation 12L, Unsaturated Iron Binding 232, Total Bilirubin 0.5, Aspartate Amino Transf (AST/SGOT) 23, Alanine Aminotransferase (ALT/SGPT) 23, Alkaline Phosphatase 105, Lactate Dehydrogenase 189, Troponin I 0.050, Total Protein 6.5, Albumin 3.0L, Globulin 3.5, Albumin/Globulin Ratio 0.9L, Vitamin B12 Level 339, Folate 13.4 11/21/17 09:00: Stool Occult Blood Positive 11/21/17 15:50: Uric Acid 7.9H, Total Creatine Kinase 419H 11/21/17 20:50: Troponin I 0.040 11/21/17 21:15: Urine Color [Pending], Urine Appearance [Pending], Urine pH [Pending], Urine Specific [place] [Pending], Urine Protein [Pending], Urine Glucose (UA) [Pending ], Urine Ketones [Pending], Urine Occult Blood [Pending], Urine Nitrite [Pending ], Urine Bilirubin [Pending], Urine Urobilinogen [Pending], Urine Leukocyte Esterase [Pending], Urine RBC [Pending], Urine WBC [Pending], Urine Squamous Epithelial Cells [Pending], Urine Bacteria [Pending], Urine Eosinophils [Pending ], Urine Random Sodium [Pending], Urine Potassium Timed [Pending] Height (Feet): 5 Height (Inches): 10.00 Weight (Pounds): 210 General Appearance: no apparent distress, alert, confused Kellie Hsieh M.D. Nov 21, 2017 21:32
[2017-11-21 21:34] LABS: COLOR,URINE YELLOW
[2017-11-21] MEDS ORDERED: Fleet's Enema 133ml RECTAL ONE ×2 (23:00)
[2017-11-22] VITALS (12 sets, daily range): BP systolic 103–198; BP diastolic 59–90
[2017-11-22] MEDS ORDERED: Midazolam 2mg/2ml Inj IVP PRN (06:15)
[2017-11-22] MEDS ORDERED: Atropine Inj 1mg/10ml Syr IV PRN (06:15)
[2017-11-22] MEDS ORDERED: DiphenhydrAMINE 50mg/ml Inj IVP PRN (06:15)
[2017-11-22] MEDS ORDERED: fentaNYL 100 mcg/2 mL IV PRN (06:15)
--- NOTE | 2017-11-22 06:21 | Anethesia Preoperative Eval ---
Anesthesia Pre-op PMH/ROS General Date of Evaluation: Nov 22, 2017 Time of Evaluation: 06:14 Anesthesiologist: bianca ASA Score: ASA 4 Mallampati Score Class I : Soft palate, uvula, fauces, pillars visible Class II: Soft palate, uvula, fauces visible Class III: Soft palate, base of uvula visible Class IV: Only hard plate visible Mallampati Classification: Class II Surgeon: jeffrey Diagnosis: anemia Surgical Procedure: egd/colonoscopy Anesthesia History: none Social History: smoking, alcohol use Family History: no anesthesia problems Allergies: Coded Allergies: No Known Allergies (Unverified , 11/19/17) Medications: see eMAR Past Medical History Cardiovascular: Reports: HTN, CAD, other - cabg, diastolic dysfunction, chf, aortic stenosis, Pulmonary: Reports: COPD, other - pulmonary edema Gastrointestinal/Genitourinary: Reports: other - chronic kidney disease, prostate cancer Endocrine: Reports: DM Hematology/Immune: Reports: anemia Anesthesia Pre-op Phys. Exam Physician Exam Last Vital Signs Date Time Temp Pulse Resp B/P (MAP) Pulse Ox O2 Delivery O2 Flow Rate FiO2 11/22/17 04:37 98.4 81 18 160/67 95 98.4 11/21/17 17:10 Room Air 94 Constitutional: NAD Neurologic: CN 2-12 intact Cardiovascular: RRR, other - grade 4/6 lance Respiratory: CTA Gastrointestinal: S/NT/ND Airway Exam Mallampati Score: Class II MO: limited Neck: short TMD: 2fb ROM: limited Teeth: missing Anesthesia Pre-op A/P Labs Hematology Test 11/21/17 07:10 White Blood Count 10.2 K/UL (4.8-10.8) Red Blood Count 3.50 M/UL (4.70-6.10) L Hemoglobin 10.0 G/DL (14.2-18.0) L Hematocrit 31.8 % (42.0-52.0) L Mean Corpuscular Volume 91 FL (80-99) Mean Corpuscular Hemoglobin 28.5 PG (27.0-31.0) Mean Corpuscular Hemoglobin Concent 31.3 G/DL (32.0-36.0) L Red Cell Distribution Width 13.7 % (11.6-14.8) Platelet Count 236 K/UL (150-450) Mean Platelet Volume 6.7 FL (6.5-10.1) Neutrophils (%) (Auto) 66.6 % (45.0-75.0) Lymphocytes (%) (Auto) 19.9 % (20.0-45.0) L Monocytes (%) (Auto) 9.3 % (1.0-10.0) Eosinophils (%) (Auto) 2.9 % (0.0-3.0) Basophils (%) (Auto) 1.3 % (0.0-2.0) Differential Total Cells Counted 100 Neutrophils % (Manual) 64 % (45-75) Lymphocytes % (Manual) 23 % (20-45) Monocytes % (Manual) 10 % (1-10) Eosinophils % (Manual) 2 % (0-3) Basophils % (Manual) 1 % (0-2) Band Neutrophils 0 % (0-8) Platelet Estimate Adequate Platelet Morphology Normal Hypochromasia 1+ Erythrocyte Sedimentation Rate 13 MM/HR (0-20) Reticulocyte Count 1.8 % (0.0-2.0) Coagulation Test 11/21/17 07:10 Prothrombin Time 9.9 SEC (9.30-11.50) Prothromb Time International Ratio 0.9 (0.9-1.1) Activated Partial Thromboplast Time 22 SEC (23-33) L Chemistry Test 11/21/17 07:10 11/21/17 15:50 11/21/17 20:50 Sodium Level 143 MMOL/L (136-145) Potassium Level 3.6 MMOL/L (3.5-5.1) Chloride Level 103 MMOL/L (98-107) Carbon Dioxide Level 35 MMOL/L (21-32) H Anion Gap 5 mmol/L (5-15) Blood Urea Nitrogen 26 mg/dL (7-18) H Creatinine 1.5 MG/DL (0.55-1.30) H Estimat Glomerular Filtration Rate mL/min (>60) Glucose Level 120 MG/DL (74-106) H Calcium Level 8.9 MG/DL (8.5-10.1) Phosphorus Level 4.4 MG/DL (2.5-4.9) Magnesium Level 1.9 MG/DL (1.8-2.4) Iron Level 32 ug/dL (50-175) L Total Iron Binding Capacity 264 ug/dL (250-450) Percent Iron Saturation 12 % (15-50) L Unsaturated Iron Binding 232 ug/dL (112-346) Total Bilirubin 0.5 MG/DL (0.2-1.0) Aspartate Amino Transf (AST/SGOT) 23 U/L (15-37) Alanine Aminotransferase (ALT/SGPT) 23 U/L (12-78) Alkaline Phosphatase 105 U/L (46-116) Lactate Dehydrogenase 189 U/L (81-234) Troponin I 0.050 ng/mL (0.000-0.056) 0.040 ng/mL (0.000-0.056) Total Protein 6.5 G/DL (6.4-8.2) Albumin 3.0 G/DL (3.4-5.0) L Globulin 3.5 g/dL Albumin/Globulin Ratio 0.9 (1.0-2.7) L Vitamin B12 Level 339 PG/ML (193-986) Folate 13.4 NG/ML (8.6-58.9) Uric Acid 7.9 MG/DL (2.6-7.2) H Total Creatine Kinase 419 U/L (26-308) H Studies Pre-op Studies: EKG - sinus rhythm w/ fusion complexes, lbbb Risk Assessment & Plan Assessment: asa4 Plan: mac Status Change Before Surgery: No Pre-Antibiotics Drug: JOSE Fontana Nov 22, 2017 06:21
--- NOTE | 2017-11-22 08:12 | Diagnostic Imaging Report ---
APPROVED REPORT CPT Code: 54323 Present Symptoms Comments: BILATERAL LEGS PAIN. BILATERAL: Imaging reveals a patent deep venous system bilaterally. There is no evidence of thrombus within the femoral, popliteal or tibial segments. The greater saphenous veins are also within normal limits. Doppler indicates normal spontaneous flow within these segments.
[2017-11-22] MEDS: Heparin 5000 units/ml inj SUBQ SCH ×2 (09:00→20:38)
[2017-11-22] MEDS ORDERED: Lidocaine 1% MPF 10mg/ml 5ml ONE (09:00)
[2017-11-22] MEDS ORDERED: Propofol 200mg/20ml IV ONE (09:00)
[2017-11-22] MEDS ORDERED: NS 500ML IV ONE (09:12)
--- NOTE | 2017-11-22 09:30 | Pre-Procedure Note/Attestation ---
Pre-Procedure Note/Attestation Complete Prior to Procedure Planned Procedure: not applicable Procedure Narrative: anemia Indications for Procedure Pre-Operative Diagnosis: gib Attestation I attest that I discussed the nature of the procedure; its benefits; risks and complications; and alternatives (and the risks and benefits of such alternatives ), prior to the procedure, with the patient (or the patient's legal arborist representative). I attest that, if there was a reasonable possibility of needing a blood transfusion, the patient (or the patient's legal arborist representative) was given the [facility] standardized written summary, pursuant to the [place] Blood Safety Act ([place] Health and Safety Code # 1645, as amended). I attest that I re-evaluated the patient just prior to the surgery and that there has been no change in the patient's H&P, except as documented below: SORAYA HENAO Nov 22, 2017 09:30
--- NOTE | 2017-11-22 09:31 | General Progress Note ---
Assessment/Plan Problem List: (1) Hx of CABG ICD Codes: Z95.1 - Presence of aortocoronary bypass graft SNOMED: 407637547, 989392640 (2) Hypertension ICD Codes: I10 - Essential (primary) hypertension SNOMED: 22913652 (3) CAD (coronary artery disease) ICD Codes: I25.10 - Atherosclerotic heart disease of [place] coronary artery without angina pectoris SNOMED: 18925553 Assessment/Plan plan EGD and colonoscopy today Subjective ROS Limited/Unobtainable: No Allergies: Coded Allergies: No Known Allergies (Unverified , 11/19/17) Objective Last 24 Hour Vital Signs Date Time Temp Pulse Resp B/P (MAP) Pulse Ox O2 Delivery O2 Flow Rate FiO2 11/22/17 08:00 98.8 82 19 164/82 98 Room Air 98.8 11/22/17 07:48 82 18 Room Air 95 11/22/17 04:37 98.4 81 18 160/67 95 98.4 11/22/17 00:01 98.1 70 19 103/59 94 98.1 11/21/17 20:28 98.4 74 18 100/63 94 98.4 11/21/17 17:10 98.4 82 18 118/32 91 Room Air 94 98.4 11/21/17 12:00 98.5 85 18 111/55 91 Room Air 94 98.5 11/21/17 12:00 68 Intake and Output 11/21/17 11/22/17 19:00 07:00 Intake Total 835 ml Balance 835 ml Intake Oral 720 ml IV Total 115 ml # Voids 4 4 # Bowel Movements 4 Laboratory Tests 11/21/17 15:50: Uric Acid 7.9H, Total Creatine Kinase 419H 11/21/17 20:50: Troponin I 0.040 11/21/17 21:15: Urine Color Yellow, Urine Appearance Clear, Urine pH 7, Urine Specific [place] 1.015, Urine Protein 2+H, Urine Glucose (UA) Negative, Urine Ketones 1+H, Urine Occult Blood Negative, Urine Nitrite PositiveH, Urine Bilirubin Negative, Urine Urobilinogen 1H, Urine Leukocyte Esterase Negative, Urine RBC 0-2H, Urine WBC 0- 2, Urine Squamous Epithelial Cells None, Urine Uric Acid Crystals FewH, Urine Amorphous Sediment FewH, Urine Bacteria Few, Urine Eosinophils None seen, Urine Random Sodium 65, Urine Potassium Timed 47 Height (Feet): 5 Height (Inches): 10.00 Weight (Pounds): 210 EENT: normal ENT inspection Neck: supple Cardiovascular: normal rate Respiratory/Chest: decreased breath sounds Abdomen: normal bowel sounds, non tender, soft Extremities: non-tender SORAYA HENAO Nov 22, 2017 09:31
--- NOTE | 2017-11-22 10:09 | Endoscopy Procedure Note ---
Endoscopy Procedure Note General Indication for Procedure: anemia, GIB Procedures Performed: EGD, colonoscopy Operative Findings/Diagnosis: multiple colon polyps, esoph ulcer Specimen: yes Pt Tolerated Procedure Well: Yes Estimated Blood Loss: none Anesthesia Anesthesiologist: bianca Anesthesia: MAC Inserted Devices Implant(s) used?: No GI Core Measures 50 yrs or older w/o bx or poly: Not Applicable 10yrs. F/U not recommended: Not Applicable SORAYA HENAO Nov 22, 2017 10:09
--- NOTE | 2017-11-22 13:32 | Immediate Post-Op Evaluation ---
Immediate Post-Op Evalulation Immediate Post-Op Evalulation Procedure: egd/colonoscopy/bx Date of Evaluation: Nov 22, 2017 Time of Evaluation: 10:27 IV Fluids: 350ml 0.9ns Blood Products: none Estimated Blood Loss: neglgible Blood Pressure Systolic: 144 Blood Pressure Diastolic: 68 Pulse Rate: 63 Respiratory Rate: 18 O2 Sat by Pulse Oximetry: 97 Temperature (Fahrenheit): 98.6 Pain Score (1-10): 0 Nausea: No Vomiting: No Complications none Patient Status: awake, reacts, patent Hydration Status: adequate Drug: JOSE Fontana Nov 22, 2017 13:32
--- NOTE | 2017-11-22 13:34 | 48 Hour Post Anesthesia Eval ---
Post Anesthesia Evaluation Procedure: egd/colonoscopy/bx Date of Evaluation: Nov 22, 2017 Time of Evaluation: 10:29 Blood Pressure Systolic: 162 0: 62 Pulse Rate: 65 Respiratory Rate: 18 Temperature (Fahrenheit): 98.6 O2 Sat by Pulse Oximetry: 100 Airway: patent Nausea: No Vomiting: No Pain Intensity: 0 Hydration Status: adequate Cardiopulmonary Status: stable Post-Anesthesia Complications: none Follow-up care needed: N/A JOSE ROBERTSON Nov 22, 2017 13:34
--- NOTE | 2017-11-22 15:43 | General Progress Note ---
Assessment/Plan Status: stable, progressing Assessment/Plan encephalopathy dementia with behavioral therapy cont current meds Subjective Date patient seen: Nov 22, 2017 Neurologic/Psychiatric: Reports: anxiety, depressed, emotional problems Allergies: Coded Allergies: No Known Allergies (Unverified , 11/19/17) Subjective the pt is calm manageable blood pressure is high today. no agitation Objective Last 24 Hour Vital Signs Date Time Temp Pulse Resp B/P (MAP) Pulse Ox O2 Delivery O2 Flow Rate FiO2 11/22/17 13:34 209.5 65 18 100 11/22/17 13:32 209.5 63 18 97 11/22/17 12:00 98.0 72 18 151/81 97 Room Air 98.0 11/22/17 11:01 65 16 172/70 95 Room Air 11/22/17 10:40 98.9 61 15 187/86 100 Nasal Cannula 3.0 98.9 11/22/17 10:25 61 15 163/90 100 Nasal Cannula 3.0 11/22/17 10:20 65 16 162/62 100 Nasal Cannula 3.0 11/22/17 10:15 98.6 63 16 194/68 100 Nasal Cannula 3.0 98.6 11/22/17 08:00 98.8 82 19 164/82 98 Room Air 98.8 11/22/17 07:48 82 18 Room Air 95 11/22/17 04:37 98.4 81 18 160/67 95 98.4 11/22/17 00:01 98.1 70 19 103/59 94 98.1 11/21/17 20:28 98.4 74 18 100/63 94 98.4 11/21/17 17:10 98.4 82 18 118/32 91 Room Air 94 98.4 Intake and Output 11/21/17 11/22/17 19:00 07:00 Intake Total 835 ml Balance 835 ml Intake Oral 720 ml IV Total 115 ml # Voids 4 4 # Bowel Movements 4 Laboratory Tests 11/21/17 15:50: Uric Acid 7.9H, Total Creatine Kinase 419H 11/21/17 20:50: Troponin I 0.040 11/21/17 21:15: Urine Color Yellow, Urine Appearance Clear, Urine pH 7, Urine Specific [place] 1.015, Urine Protein 2+H, Urine Glucose (UA) Negative, Urine Ketones 1+H, Urine Occult Blood Negative, Urine Nitrite PositiveH, Urine Bilirubin Negative, Urine Urobilinogen 1H, Urine Leukocyte Esterase Negative, Urine RBC 0-2H, Urine WBC 0- 2, Urine Squamous Epithelial Cells None, Urine Uric Acid Crystals FewH, Urine Amorphous Sediment FewH, Urine Bacteria Few, Urine Eosinophils None seen, Urine Random Sodium 65, Urine Potassium Timed 47 Height (Feet): 5 Height (Inches): 10.00 Weight (Pounds): 225 General Appearance: no apparent distress, alert, confused Kellie Hsieh M.D. Nov 22, 2017 15:43
--- NOTE | 2017-11-22 16:30 | Procedure Note ---
DATE OF PROCEDURE: 11/22/2017 SURGEON: Dominic Powers M.D. REFERRING PHYSICIAN: Sukhwinder Price M.D. INDICATION: Anemia. PROCEDURE: Upper endoscopy with biopsy and colonoscopy with biopsy with snare polypectomy. ANESTHESIA: Per Dr. Tafoya. INSTRUMENT: Olympus adult flexible upper endoscope and colonoscope. The procedure, risks, benefits, and possible consequences, including hemorrhage, aspiration, perforation and infection, and alternative treatments, were explained to the patient/legal guardian by Dr. Dominic Powers and the patient/legal guardian understood and accepted these risks. DESCRIPTION OF PROCEDURE: After informed consent was obtained and the patient was adequately sedated, Olympus upper endoscope was advanced from mouth into the second portion of duodenum and retroflexion was performed in the stomach. The patient had evidence of diffuse gastritis. Random biopsies from body and antrum were obtained to rule out H. pylori infection. The patient had multiple small erosions in the antrum. Then, we entered the duodenal bulb. There was very, at least 4 or 5 small aphthous ulceration in the duodenum. No adherent clot. No visible vessel. Then, we advanced the scope into the second portion of duodenum. Biopsy from the second portion of duodenum was obtained to rule out Crohn's disease. At this time, we pulled the scope back into the esophagus. There was an ulcer in the distal esophagus without any adherent clot or visible vessel. At this time, the scope was retrieved. The patient was turned over for colonoscopy. First, a rectal exam performed, which was normal. Then, the scope was advanced from rectum into the cecum, documented by appendix orifice, ileocecal valve, and right upper quadrant palpation. Quality of prep overall was good. The patient has significant diverticulosis in both right and left colon. In the cecum, there were multiple polyps, sessile, two small ones and one was 6 mm. The two small ones were removed with the cold biopsy forceps technique and a 6 cm using hot snare polypectomy technique. The patient also had one polyp in the transverse colon, diminutive, removed with cold biopsy forceps technique. The patient tolerated the procedure very well without any complications. SUMMARY OF FINDINGS: 1. Esophageal ulceration. 2. Gastritis and gastric erosions. 3. Shallow duodenal ulcerations. 4. Significant diverticulosis. 5. A total of 4 polyps removed from this colonoscopic examination. RECOMMENDATIONS: Follow biopsy results and treat accordingly. We will start the patient on PPI, pending biopsy. The patient will need a repeat colonoscopy in three years. I want to thank, Dr. Price, for this kind referral. Dominic Powers M.D. DR: PABLO JOB#: [id number] CC: Sukhwinder Price M.D.; Fax#: [phone]
--- NOTE | 2017-11-22 16:54 | Pulmonology Progress Note ---
Assessment/Plan Problems: (1) Acute exacerbation of CHF (congestive heart failure) (2) Intractable nausea and vomiting (3) Pulmonary edema (4) CAD (coronary artery disease) (5) Hypertension (6) Hx of CABG Assessment/Plan off lasix add phenergen iv for nausea still well GI consult appreciated symptomatic treatment check electrolytes check echo dvt prophylaxis EGD and colonoscopy shwed, duodonal uler, gastric erosion and colon polyp dc planning Subjective ROS Limited/Unobtainable: No Constitutional: Reports: no symptoms HEENT: Repors: no symptoms Respiratory: Reports: no symptoms Allergies: Coded Allergies: No Known Allergies (Unverified , 11/19/17) Objective Last 24 Hour Vital Signs Date Time Temp Pulse Resp B/P (MAP) Pulse Ox O2 Delivery O2 Flow Rate FiO2 11/22/17 16:45 181/80 11/22/17 16:00 98.8 69 18 181/80 99 Room Air 98.8 11/22/17 13:34 209.5 65 18 100 11/22/17 13:32 209.5 63 18 97 11/22/17 12:00 98.0 72 18 151/81 97 Room Air 98.0 11/22/17 11:01 65 16 172/70 95 Room Air 11/22/17 10:40 98.9 61 15 187/86 100 Nasal Cannula 3.0 98.9 11/22/17 10:25 61 15 163/90 100 Nasal Cannula 3.0 11/22/17 10:20 65 16 162/62 100 Nasal Cannula 3.0 11/22/17 10:15 98.6 63 16 194/68 100 Nasal Cannula 3.0 98.6 11/22/17 08:00 98.8 82 19 164/82 98 Room Air 98.8 11/22/17 07:48 82 18 Room Air 95 11/22/17 04:37 98.4 81 18 160/67 95 98.4 11/22/17 00:01 98.1 70 19 103/59 94 98.1 11/21/17 20:28 98.4 74 18 100/63 94 98.4 11/21/17 17:10 98.4 82 18 118/32 91 Room Air 94 98.4 Intake and Output 11/21/17 11/22/17 19:00 07:00 Intake Total 835 ml Balance 835 ml Intake Oral 720 ml IV Total 115 ml # Voids 4 4 # Bowel Movements 4 Objective General Appearance: WD/WN Lines, tubes and drains: peripheral HEENT: normocephalic, atraumatic Neck: non-tender, normal alignment Respiratory/Chest: chest wall non-tender, lungs clear Cardiovascular/Chest: normal peripheral pulses, normal rate Abdomen: normal bowel sounds Genitourinary/Rectal: normal genital exam, normal rectal exam Extremities: normal range of motion Skin Exam: normal pigmentation Microbiology Date/Time Source Procedure Growth Status 11/19/17 18:20 Blood Blood Culture - Preliminary NO GROWTH AFTER 48 HOURS Resulted 11/19/17 18:15 Blood Blood Culture - Preliminary NO GROWTH AFTER 48 HOURS Resulted 11/19/17 18:00 Nasal Nares Influenza Types A,B Antigen (HOLLY) - Final Complete Laboratory Tests 11/21/17 20:50: Troponin I 0.040 11/21/17 21:15: Urine Color Yellow, Urine Appearance Clear, Urine pH 7, Urine Specific [place] 1.015, Urine Protein 2+H, Urine Glucose (UA) Negative, Urine Ketones 1+H, Urine Occult Blood Negative, Urine Nitrite PositiveH, Urine Bilirubin Negative, Urine Urobilinogen 1H, Urine Leukocyte Esterase Negative, Urine RBC 0-2H, Urine WBC 0- 2, Urine Squamous Epithelial Cells None, Urine Uric Acid Crystals FewH, Urine Amorphous Sediment FewH, Urine Bacteria Few, Urine Eosinophils None seen, Urine Random Sodium 65, Urine Potassium Timed 47 Current Medications Medications (Trade) Dose Ordered Sig/Gini Route PRN Reason Start Time Stop Time Status Last Admin Dose Admin Acetaminophen (Tylenol) 650 mg Q4H PRN ORAL Fever 11/21/17 21:30 12/19/17 21:29 Albuterol/ Ipratropium (Albuterol/ Ipratropium) 3 ml Q4H PRN HHN Shortness of Breath 11/21/17 21:00 11/26/17 20:59 Clonidine HCl (Catapres Tab) 0.1 mg Q4H PRN ORAL SBP > 160 11/22/17 11:30 12/22/17 11:29 11/22/17 16:45 Dextrose (Dextrose 50%) 25 ml STAT PRN IV HYPOGLYCEMIA 11/22/17 08:30 12/21/17 08:29 Dextrose (Dextrose 50%) 50 ml STAT PRN IV Hypoglycemia 11/22/17 09:00 12/21/17 08:59 Heparin Sodium (Porcine) (Heparin 5000 units/ml) 5,000 units EVERY 12 HOURS SUBQ 11/21/17 21:00 12/20/17 08:59 Iron Sucrose 100 mg/Sodium Chloride 115 ml @ 460 mls/hr BEDTIME IV 11/21/17 21:00 11/25/17 21:14 11/21/17 20:47 Ondansetron HCl (Zofran) 4 mg Q6H PRN IVP Nausea & Vomiting 11/21/17 21:30 12/19/17 21:29 Pantoprazole (Protonix) 40 mg ACBREAKFAST ORAL 11/22/17 11:00 12/22/17 10:59 Polyethylene Glycol (Miralax) 17 gm DAILYPRN PRN ORAL Constipation 11/21/17 21:30 12/19/17 21:29 Promethazine HCl (Phenergan) 25 mg Q6H PRN IV Nausea & Vomiting 11/21/17 19:30 12/20/17 13:29 Quetiapine Fumarate (SEROquel) 25 mg Q6H PRN ORAL Agitation 11/21/17 23:15 12/20/17 17:14 Temazepam (Restoril) 15 mg HSPRN PRN ORAL Insomnia 11/21/17 21:30 11/26/17 21:29 Sukhwinder Price MD Nov 22, 2017 16:54
--- NOTE | 2017-11-22 18:34 | Diagnostic Imaging Report ---
Indication: Abdominal pain, normal renal function Technique: US ABD Complete Comparison: None Findings: Pancreas poorly visualized due to overlying bowel gas. Hepatic contour is smooth. No focal hepatic mass lesion is appreciated sonographically. The portal vein is patent with normal direction of flow. Common bile duct measures 7.2 mm. Gallbladder not definitively seen. Right kidney measures 12 cm in length. Left kidney measures 11.4 centers in length. A large cyst from the upper pole the left kidney measures up to 10 cm in diameter. No evidence of hydronephrosis bilaterally. Spleen unremarkable. No ascites seen. Impression: Limited exam due to overlying bowel gas which obscures the pancreas and midline structures. Within these limitations: * Gallbladder are not visualized. Correlate for history of prior cholecystectomy. * Bilateral simple appearing cysts with a large cyst arising from the upper pole of the the left kidney. * Cystic structure noted on scanning in the epigastric region may be the left renal cyst. Additional etiologies such as pancreatic pseudocyst not entirely excluded. Further evaluation with CT of the abdomen pelvis with IV and oral contrast recommended.
--- NOTE | 2017-11-22 19:11 | Cardiology Progress Note ---
Assessment/Plan Assessment/Plan 1. Questionable shortness of breath at the time of admission. 2. Aortic stenosis, moderate degree. 3. Coronary artery disease, status post coronary bypass grafting. 4. Stage 4 chronic renal insufficiency. 5. History of prostate cancer, status post radiation therapy. 6. Diabetes mellitus. 7. History of hypertension. 8. Mild diastolic dysfunction. gi fuller cbc fine tropneg duplex neg bp elevatred with start back on coreg adn low dose cozaar Subjective ROS Limited/Unobtainable: Yes Objective Last 24 Hour Vital Signs Date Time Temp Pulse Resp B/P (MAP) Pulse Ox O2 Delivery O2 Flow Rate FiO2 11/22/17 18:36 74 144/68 11/22/17 16:45 181/80 11/22/17 16:00 98.8 69 18 181/80 99 Room Air 98.8 11/22/17 13:34 209.5 65 18 100 11/22/17 13:32 209.5 63 18 97 11/22/17 12:00 98.0 72 18 151/81 97 Room Air 98.0 11/22/17 11:01 65 16 172/70 95 Room Air 11/22/17 10:40 98.9 61 15 187/86 100 Nasal Cannula 3.0 98.9 11/22/17 10:25 61 15 163/90 100 Nasal Cannula 3.0 11/22/17 10:20 65 16 162/62 100 Nasal Cannula 3.0 11/22/17 10:15 98.6 63 16 194/68 100 Nasal Cannula 3.0 98.6 11/22/17 08:00 98.8 82 19 164/82 98 Room Air 98.8 11/22/17 07:48 82 18 Room Air 95 11/22/17 04:37 98.4 81 18 160/67 95 98.4 11/22/17 00:01 98.1 70 19 103/59 94 98.1 11/21/17 20:28 98.4 74 18 100/63 94 98.4 General Appearance: alert Neck: no JVD Cardiovascular: normal rate, regular rhythm Respiratory/Chest: crackles/rales Abdomen: non tender, soft Extremities: no swelling Intake and Output 11/21/17 11/22/17 19:00 07:00 Intake Total 835 ml Balance 835 ml Intake Oral 720 ml IV Total 115 ml # Voids 4 4 # Bowel Movements 4 Laboratory Tests Test 11/21/17 20:50 11/21/17 21:15 Troponin I 0.040 ng/mL (0.000-0.056) Urine Color Yellow Urine Appearance Clear Urine pH 7 (4.5-8.0) Urine Specific [place] 1.015 (1.005-1.035) Urine Protein 2+ (NEGATIVE) H Urine Glucose (UA) Negative (NEGATIVE) Urine Ketones 1+ (NEGATIVE) H Urine Occult Blood Negative (NEGATIVE) Urine Nitrite Positive (NEGATIVE) H Urine Bilirubin Negative (NEGATIVE) Urine Urobilinogen 1 MG/DL (0.0-1.0) H Urine Leukocyte Esterase Negative (NEGATIVE) Urine RBC 0-2 /HPF (0 - 0) H Urine WBC 0-2 /HPF (0 - 0) Urine Squamous Epithelial Cells None /LPF (NONE/OCC) Urine Uric Acid Crystals Few /LPF (NONE) H Urine Amorphous Sediment Few /LPF (NONE) H Urine Bacteria Few /HPF (NONE) Urine Eosinophils None seen Urine Random Sodium 65 mmol/L (20-110) Urine Potassium Timed 47 mmol/L (12-62) JOAQUÍN ROY Nov 22, 2017 19:11
[2017-11-22 19:41] LABS: BASOPHILS % (AUTO) 0.9 % (0.0-2.0); EOSINOPHILS % (AUTO) 2.8 % (0.0-3.0); HEMOGLOBIN 10.1 G/DL (14.2-18.0); MEAN CORPUSCULAR VOLUME 90 FL (80-99); MONOCYTES % (AUTO) 8.7 % (1.0-10.0); NEUTROPHILS % (AUTO) 75.5 % (45.0-75.0); PLATELET COUNT 280 K/UL (150-450); RED BLOOD COUNT 3.57 M/UL (4.70-6.10); RED CELL DISTRIBUTION WIDTH 13.4 % (11.6-14.8); WHITE BLOOD COUNT 12.1 K/UL (4.8-10.8)
[2017-11-22] MEDS ORDERED: Carvedilol 6.25mg Tab ORAL ONE (19:45)
[2017-11-22 19:56] LABS: AMYLASE 35 U/L (25-115)
[2017-11-22 19:58] LABS: CREATINE KINASE 190 U/L (26-308)
[2017-11-22] MEDS: Iron Sucrose 100 MG in NS 110 ML IV SCH (20:37)
[2017-11-23] VITALS: BP 142/65
[2017-11-23 04:00] VITALS: BP 146/71
[2017-11-23 08:00] VITALS: BP 146/74
[2017-11-23] MEDS ORDERED: Losartan 25mg tab ORAL SCH (09:00)
[2017-11-23] MEDS: Heparin 5000 units/ml inj SUBQ SCH (09:09)
[2017-11-23 12:00] VITALS: BP 140/62
--- NOTE | 2017-11-23 12:12 | General Progress Note ---
Assessment/Plan Problem List: (1) Hx of CABG ICD Codes: Z95.1 - Presence of aortocoronary bypass graft SNOMED: 233611886, 824292185 (2) Hypertension ICD Codes: I10 - Essential (primary) hypertension SNOMED: 35122872 (3) CAD (coronary artery disease) ICD Codes: I25.10 - Atherosclerotic heart disease of kaw coronary artery without angina pectoris SNOMED: 03188918 Assessment/Plan EGD and colonoscopy report: SUMMARY OF FINDINGS: 1. Esophageal ulceration. 2. Gastritis and gastric erosions. 3. Shallow duodenal ulcerations. 4. Significant diverticulosis. 5. A total of 4 polyps removed from this colonoscopic examination. ppi stable h&H fu path repeat colonoscopy in 3 years Subjective ROS Limited/Unobtainable: Yes Allergies: Coded Allergies: No Known Allergies (Unverified , 11/19/17) Subjective no event Objective Last 24 Hour Vital Signs Date Time Temp Pulse Resp B/P (MAP) Pulse Ox O2 Delivery O2 Flow Rate FiO2 11/23/17 09:08 146/74 11/23/17 08:00 98.2 62 18 146/74 95 98.2 11/23/17 07:06 74 18 Room Air 21 11/23/17 04:00 97.8 73 20 146/71 97.8 11/23/17 00:00 98.6 74 18 142/65 97 98.6 11/22/17 20:42 82 18 Room Air 21 11/22/17 20:37 74 144/65 11/22/17 20:00 99.5 68 18 144/65 96 99.5 11/22/17 18:36 74 144/68 11/22/17 16:45 181/80 11/22/17 16:00 98.8 69 18 181/80 99 Room Air 98.8 11/22/17 13:34 209.5 65 18 100 11/22/17 13:32 209.5 63 18 97 Intake and Output 11/22/17 11/23/17 19:00 07:00 Intake Total 1350 ml 615 ml Balance 1350 ml 615 ml Intake Oral 500 ml IV Total 350 ml 115 ml Other 1000 ml # Voids 3 6 Laboratory Tests 11/22/17 19:00: White Blood Count 12.1H, Red Blood Count 3.57L, Hemoglobin 10.1L, Hematocrit 32.0L, Mean Corpuscular Volume 90, Mean Corpuscular Hemoglobin 28.4, Mean Corpuscular Hemoglobin Concent 31.7L, Red Cell Distribution Width 13.4, Platelet Count 280, Mean Platelet Volume 6.6, Neutrophils (%) (Auto) 75.5H, Lymphocytes (%) (Auto) 12.0L, Monocytes (%) (Auto) 8.7, Eosinophils (%) (Auto) 2.8, Basophils (%) (Auto) 0.9, Uric Acid 7.6H, Total Creatine Kinase 190, Amylase Level 35, Lipase 201, Folate 10.0 Height (Feet): 5 Height (Inches): 10.00 Weight (Pounds): 219 General Appearance: no apparent distress EENT: normal ENT inspection Neck: supple Cardiovascular: normal rate Respiratory/Chest: decreased breath sounds Abdomen: normal bowel sounds, non tender, soft Extremities: non-tender SORAYA HENAO Nov 23, 2017 12:12
--- NOTE | 2017-11-23 16:32 | Pulmonology Progress Note ---
Assessment/Plan Problems: (1) Acute exacerbation of CHF (congestive heart failure) (2) Intractable nausea and vomiting (3) Pulmonary edema (4) CAD (coronary artery disease) (5) Hypertension (6) Hx of CABG Assessment/Plan doing better off lasix add phenergen iv for nausea still well GI consult appreciated symptomatic treatment check echo dvt prophylaxis EGD and colonoscopy shwed, duodonal uler, gastric erosion and colon polyp dc planning for today Subjective ROS Limited/Unobtainable: No Constitutional: Reports: no symptoms HEENT: Repors: no symptoms Respiratory: Reports: no symptoms Allergies: Coded Allergies: No Known Allergies (Unverified , 11/19/17) Objective Last 24 Hour Vital Signs Date Time Temp Pulse Resp B/P (MAP) Pulse Ox O2 Delivery O2 Flow Rate FiO2 11/23/17 12:00 98.0 71 20 140/62 96 98.0 11/23/17 09:08 146/74 11/23/17 08:00 98.2 62 18 146/74 95 98.2 11/23/17 07:06 74 18 Room Air 21 11/23/17 04:00 97.8 73 20 146/71 97.8 11/23/17 00:00 98.6 74 18 142/65 97 98.6 11/22/17 20:42 82 18 Room Air 21 11/22/17 20:37 74 144/65 11/22/17 20:00 99.5 68 18 144/65 96 99.5 11/22/17 18:36 74 144/68 11/22/17 16:45 181/80 Intake and Output 11/22/17 11/23/17 19:00 07:00 Intake Total 1350 ml 615 ml Balance 1350 ml 615 ml Intake Oral 500 ml IV Total 350 ml 115 ml Other 1000 ml # Voids 3 6 Objective General Appearance: WD/WN Lines, tubes and drains: peripheral HEENT: normocephalic, atraumatic Neck: non-tender, normal alignment Respiratory/Chest: chest wall non-tender, lungs clear Cardiovascular/Chest: normal peripheral pulses, normal rate Abdomen: normal bowel sounds Genitourinary/Rectal: normal genital exam, normal rectal exam Extremities: normal range of motion Skin Exam: normal pigmentation Laboratory Tests 11/22/17 19:00: White Blood Count 12.1H, Red Blood Count 3.57L, Hemoglobin 10.1L, Hematocrit 32.0L, Mean Corpuscular Volume 90, Mean Corpuscular Hemoglobin 28.4, Mean Corpuscular Hemoglobin Concent 31.7L, Red Cell Distribution Width 13.4, Platelet Count 280, Mean Platelet Volume 6.6, Neutrophils (%) (Auto) 75.5H, Lymphocytes (%) (Auto) 12.0L, Monocytes (%) (Auto) 8.7, Eosinophils (%) (Auto) 2.8, Basophils (%) (Auto) 0.9, Uric Acid 7.6H, Total Creatine Kinase 190, Amylase Level 35, Lipase 201, Folate 10.0 Current Medications Medications (Trade) Dose Ordered Sig/Gini Route PRN Reason Start Time Stop Time Status Last Admin Dose Admin Acetaminophen (Tylenol) 650 mg Q4H PRN ORAL Fever 11/21/17 21:30 12/19/17 21:29 Albuterol/ Ipratropium (Albuterol/ Ipratropium) 3 ml Q4H PRN HHN Shortness of Breath 11/21/17 21:00 11/26/17 20:59 Clonidine HCl (Catapres Tab) 0.1 mg Q4H PRN ORAL SBP > 160 11/22/17 11:30 12/22/17 11:29 11/22/17 16:45 Dextrose (Dextrose 50%) 25 ml STAT PRN IV HYPOGLYCEMIA 11/22/17 08:30 12/21/17 08:29 Dextrose (Dextrose 50%) 50 ml STAT PRN IV Hypoglycemia 11/22/17 09:00 12/21/17 08:59 Heparin Sodium (Porcine) (Heparin 5000 units/ml) 5,000 units EVERY 12 HOURS SUBQ 11/21/17 21:00 12/20/17 08:59 11/23/17 09:09 Iron Sucrose 100 mg/Sodium Chloride 115 ml @ 460 mls/hr BEDTIME IV 11/21/17 21:00 11/25/17 21:14 11/22/17 20:37 Losartan Potassium (Cozaar) 25 mg DAILY ORAL 11/23/17 09:00 12/23/17 08:59 11/23/17 09:08 Ondansetron HCl (Zofran) 4 mg Q6H PRN IVP Nausea & Vomiting 11/21/17 21:30 12/19/17 21:29 Pantoprazole (Protonix) 40 mg ACBREAKFAST ORAL 11/22/17 11:00 12/22/17 10:59 11/23/17 06:39 Polyethylene Glycol (Miralax) 17 gm DAILYPRN PRN ORAL Constipation 11/21/17 21:30 12/19/17 21:29 Promethazine HCl (Phenergan) 25 mg Q6H PRN IV Nausea & Vomiting 11/21/17 19:30 12/20/17 13:29 Quetiapine Fumarate (SEROquel) 25 mg Q6H PRN ORAL Agitation 11/21/17 23:15 12/20/17 17:14 Temazepam (Restoril) 15 mg HSPRN PRN ORAL Insomnia 11/21/17 21:30 11/26/17 21:29 11/23/17 01:50 Sukhwinder Price MD Nov 23, 2017 16:32
[2017-11-23] MEDS ORDERED: PROTONIX40 MG ORAL (16:33)
[2017-11-23] MEDS ORDERED: NS 275ml ONE (18:54)
[2017-11-23] MEDS ORDERED: Tubing IV Secondary IV ONE (18:54)
--- NOTE | 2017-11-23 19:00 | General Progress Note ---
Assessment/Plan Assessment/Plan encephalopathy dementia with behavioral therapy cont current meds Subjective Date patient seen: Nov 23, 2017 Neurologic/Psychiatric: Reports: anxiety, depressed, emotional problems Allergies: Coded Allergies: No Known Allergies (Unverified , 11/19/17) Subjective the pt is calm manageable blood pressure is high today. no agitation Objective Last 24 Hour Vital Signs Date Time Temp Pulse Resp B/P (MAP) Pulse Ox O2 Delivery O2 Flow Rate FiO2 11/23/17 12:00 98.0 71 20 140/62 96 98.0 11/23/17 09:08 146/74 11/23/17 08:00 98.2 62 18 146/74 95 98.2 11/23/17 07:06 74 18 Room Air 21 11/23/17 04:00 97.8 73 20 146/71 97.8 11/23/17 00:00 98.6 74 18 142/65 97 98.6 11/22/17 20:42 82 18 Room Air 21 11/22/17 20:37 74 144/65 11/22/17 20:00 99.5 68 18 144/65 96 99.5 Intake and Output 11/22/17 11/23/17 19:00 07:00 Intake Total 1350 ml 615 ml Balance 1350 ml 615 ml Intake Oral 500 ml IV Total 350 ml 115 ml Other 1000 ml # Voids 3 6 Height (Feet): 5 Height (Inches): 10.00 Weight (Pounds): 219 Kellie Hsieh M.D. Nov 23, 2017 19:00
--- NOTE | 2017-11-24 14:43 | Discharge Summary ---
Discharge Summary Discharge Summary Discharge Summary DATE OF ADMISSION: 11/19/2017 DATE OF DISCHARGE: 11/23/2017 REASON FOR ADMISSION: 77 years old male with history of coronary artery disease, status post CABG , chronic renal insufficiency, history of prostate cancer, status post radiation, presented by paramedics with increased difficulty breathing. Patient reported gradually worsening difficulty in breathing. Patient also reported swelling in lower extremities as well as increased cough. Shortness of breath was worse in supine position. Upon evaluation in emergency room, blood pressure elevated 187/74, pulse oximetry 92% on room air. No leukocytosis, evidence of anemia with hemoglobin -9.9 hematocrit- 31.2. BUN- 29 ,creatinine -1.3. Troponin negative. Pro BNP- 5179. EKG revealed normal sinus atrium with a left bundle branch block. Chest x-ray revealed cardiomegaly, atelectasis at the right lateral lung base and pleural effusion. Patitn aso reported nausea with vomiting , nonbloody, nonbilious, but no abdominal pain. Patient was admitted with diagnosis of CHF exacerbation, intractable nausea and vomiting, coronary artery disease, hypertension, history of CABG. CONSULTANTS: buckle assembler, Dr. Mejia GI specialist, Dr. Powers psychiatrist, [facility]: Patient admitted to telemetry floor. Cardiology consult was requested. Serial troponin ,EKG and ECHO were ordered. Patient started on IV diuresis with close monitoring of cardiorenal parameters and vitamins. Venous duplex bilateral lower extremities revealed no evidence of acute DVT. Echocardiogram revealed ejection fraction of 50% with septal hypokinesis of the proximal anterior septum and mid to distal inferior wall and proximal to mid posterior wall. Moderate left ventricular hypertrophy. Moderate to severe aortic stenosis and [id number] mitral regurgitation. Right ventricular systolic pressure of 35-40. Serial troponin were all negative,except one with minimal elevation - 0.098. According to buckle assembler, likely troponin leak due to the renal insufficiency. Blood pressure was managed with beta dilan and low dose of Cozaar. Blood pressure stabilized. DVT and GI prophylaxis provided . Patient was anemic, stool for occult blood was positive . GI closely followed. Patient subsequently undergone EGD and colonoscopy with findings of multiple colon polyps, status post removal 4, significant diverticulosis, gastritis, gastric erosions, shallow duodenal ulcerations, and esophageal ulcerations. Patient started on PPI. Hemoglobin and hematocrit were closely monitored , anemia at the baseline. Venofer given x 2. Pathology results pending. GI recommended repeat colonoscopy in 3 years and to follow up with pathology results. In terms of nausea and vomiting, the etiology was unclear. No acute abdominal findings. Stable amylase and lipase. Abdominal ultrasound was personally reviewed by GI specialist, who recommended symptomatic treatment. No acute filings. Patient was continued on antiemetics as needed. Phenergan was added to existing regimen of Zofran. Plavix was continued. Renal parameters and electrolytes were closely monitored. Electrolytes were corrected as needed. Nephrotoxics were avoided. Psychiatrist seen and evaluated the patient, diagnosed patient with encephalopathy and dementia with behavioral changes. Psychiatrist optimized psychiatric medication regimen. Patient was stable for discharge home FINAL DIAGNOSES: Acute CHF exacerbation Mild diastolic dysfunction Coronary artery disease, status post CABG Chronic renal insufficiency, stage IV Anemia GI bleeding history of prostate cancer, status post radiation Diabetes mellitus s/p EGD and colonoscopy Esophageal ulcerations Gastritis and gastric erosions Duodenal ulcerations Diverticulosis Colon polyps, status post x4 removal Encephalopathy Dementia with behavioral changes DISCHARGE MEDICATIONS: See Medication Reconciliation list. DISCHARGE INSTRUCTIONS: Patient was discharged home Follow up with primary care provide in one week I have been assigned to dictate discharge summary for this account. I was not involved in the patient's management. Trace SinghDione washington NP Nov 24, 2017 14:43
== END 2017-11-23 18:55 | disposition home or self-care (01) | DRG 291 ==
LOC: EDUNIT# 17:29 → EDBD 17:29 → EMR 18:00 → 2E 20:18 → EDBEDREQ 21:02 → 2E 22:26 → 4E 11-21 17:08
PROC: 0DB78ZX Excision of Stomach, Pylorus, Via Natural or Artificial Opening Endoscopic, Diagnostic (ICD-10-PCS; principal; 2017-11-22 09:37)
PROC: 0DB68ZX Excision of Stomach, Via Natural or Artificial Opening Endoscopic, Diagnostic (ICD-10-PCS; principal; 2017-11-22 09:37)
PROC: 0DB98ZX Excision of Duodenum, Via Natural or Artificial Opening Endoscopic, Diagnostic (ICD-10-PCS; principal; 2017-11-22 09:37)
PROC: 0DBL8ZZ Excision of Transverse Colon, Via Natural or Artificial Opening Endoscopic (ICD-10-PCS; principal; 2017-11-22 09:37)
PROC: 0DBH8ZZ Excision of Cecum, Via Natural or Artificial Opening Endoscopic (ICD-10-PCS; principal; 2017-11-22 09:37)
DX: I13.0 Hypertensive heart and chronic kidney disease with heart failure and stage 1 through stage 4 chronic kidney disease, or unspecified chronic kidney disease (principal); I50.33 Acute on chronic diastolic (congestive) heart failure; G93.40 Encephalopathy, unspecified; N18.4 Chronic kidney disease, stage 4 (severe); K92.2 Gastrointestinal hemorrhage, unspecified; K22.10 Ulcer of esophagus without bleeding; F03.91 Unspecified dementia, unspecified severity, with behavioral disturbance; Z95.1 Presence of aortocoronary bypass graft; Z85.46 Personal history of malignant neoplasm of prostate; I35.0 Nonrheumatic aortic (valve) stenosis; D64.9 Anemia, unspecified; I25.10 Atherosclerotic heart disease of native coronary artery without angina pectoris; Z92.3 Personal history of irradiation; E11.22 Type 2 diabetes mellitus with diabetic chronic kidney disease; K29.70 Gastritis, unspecified, without bleeding; K26.9 Duodenal ulcer, unspecified as acute or chronic, without hemorrhage or perforation; K57.90 Diverticulosis of intestine, part unspecified, without perforation or abscess without bleeding; K63.5 Polyp of colon; Z91.81 History of falling; Z86.718 Personal history of other venous thrombosis and embolism; N40.0 Benign prostatic hyperplasia without lower urinary tract symptoms; Z87.891 Personal history of nicotine dependence; R11.2 Nausea with vomiting, unspecified
CPT/HCPCS: 36415; 71045; 76700; 80048; 80053; 80069; 81001; 82150; 82270; 82378; 82550; 82553; 82607; 82746; 83540; 83550; 83605; 83615; 83690; 83735; 83880; 84100; 84133; 84300; 84484; 84550; 85007; 85025; 85044; 85060; 85610; 85651; 85730; 86710; 87040; 89050; 93005; 93306; 93970; 94003; 94150; 94640; 94664; 99285; J2405